=== PATIENT | female | born 1955 | race Caucasian/White ===

== ENCOUNTER → 2020-03-02 12:51 | Outpatient (BNVA) | payer MEDICARE, MEDICAID, SELFPAY | PROVIDERS: PCP Internal Medicine; Referring Provider Internal Medicine; Visit Provider Nurse Practitioner | DX: Z13.89 Encounter for screening for other disorder (principal) | CPT/HCPCS: Q3014 ==

== ENCOUNTER → 2020-09-29 16:03 | Outpatient (BNVA) | payer MEDICARE, MEDICAID, SELFPAY | PROVIDERS: PCP Internal Medicine; Visit Provider Student in an Organized Health Care Education/Training Program | DX: E11.618 Type 2 diabetes mellitus with other diabetic arthropathy (principal); E11.65 Type 2 diabetes mellitus with hyperglycemia | CPT/HCPCS: 99212 ==

== ENCOUNTER → 2020-10-15 15:39 | Outpatient (BNVA) | payer MEDICARE, MEDICAID, SELFPAY | PROVIDERS: PCP Internal Medicine; Visit Provider Nurse Practitioner ==

== ENCOUNTER → 2020-10-27 15:59 | Outpatient (BNVA) | payer MEDICARE, MEDICAID, SELFPAY | PROVIDERS: Visit Provider Nurse Practitioner | CPT/HCPCS: Q3014 ==

== ENCOUNTER 2020-12-08 09:10 | Outpatient (REF) | payer MEDICARE, MEDICAID, SELFPAY ==
--- NOTE | ~2020-12-08 | XR_ITS ---
EXAMINATION: XR KNEE, LEFT CLINICAL INFORMATION: Sprain COMPARISON: Previous x-ray July 2018 TECHNIQUE: Four views of the left knee. FINDINGS: There is an acute comminuted displaced fracture of the patella. No other fracture is seen. Joint spaces are normal. There is a joint effusion. There is prepatellar soft tissue swelling. XR/XR knee LT 4V IMPRESSION: Comminuted displaced fracture of the patella.
== END 2020-12-08 09:11 | disposition home or self-care (01) ==
LOC: HO.HMGCX 09:10
PROVIDERS: Visit Provider Internal Medicine
DX: Z01.818 Encounter for other preprocedural examination (principal); S82.002A Unspecified fracture of left patella, initial encounter for closed fracture
CPT/HCPCS: 73564; 99202

== ENCOUNTER 2020-12-09 14:07 | Day surgery (SDC) | payer MEDICARE, MEDICAID, SELFPAY ==
[2020-12-09] VITALS (13 sets, daily range): BP systolic 141–171; BP diastolic 69–86; PULSE 76–100; RESP 14–20; TEMP 36.1–36.6; O2SAT 9–99; BMI 26.9
--- NOTE | ~2020-12-09 | FL_ITS ---
EXAMINATION: XR FLUOROSCOPY WITH IMAGES CLINICAL INFORMATION: Fracture left patella COMPARISON: Left knee 12/08/2020 TECHNIQUE: Fluoroscopy performed by Dr. Wil Cesar Fluoroscopy time: 0.6 minutes DAP: 0.0415 mGycm2 Images: 2 FINDINGS: On the 2 images obtained there is stabilized patellar fracture with metallic pin in satisfactory alignment. FL/FL guidance in OR IMPRESSION: Status post ORIF with a patellar fracture alignment stabilized with metallic pins.
--- NOTE | 2020-12-09 14:47 | P.CONAN_ITS ---
[facility] Active Problems Active Problems: All Active Problems (Updated 12/08/20 @ 12:53 by Francia diaz PA-C) Fracture of patella, left, closed (Acute) Knee sprain (Acute) Colon cancer screening (Acute) Diabetes type 2, uncontrolled (Acute) Diabetic cheirarthropathy (Acute) GERD (gastroesophageal reflux disease) (Acute) Past Medical History Medical History Depression Diabetes HTN (hypertension) Hyperlipidemia Family History Family History Father Diabetes Alzheimer disease Mother Kidney problem Family history of problems with anesthesia: No Surgical History Surgical History History of carpal tunnel release (~05/2019) Hx of colonoscopy (~2019) Hx of tubal ligation History of Problems with Anesthesia: No Social History Social History Alcohol intake: never Patient Tobacco Use Status: Never used Tobacco Advance Directives: No Advance Directives Information Provided: Yes Meds Allergies Allergy/AdvReac Type Severity Reaction Status Date / Time No Known Allergies Allergy Verified 12/09/20 14:47 Active Medications: Current Medications Cefazolin Sodium/Dextrose (Ancef) 2 gm in 50 mls @ 100 mls/hr IV PREOP ONE Stop: 12/09/20 14:51 Home Medications Medication Instructions Recorded Confirmed Last Taken Type acetaminophen 650 mg 650 mg PO Q12H 09/29/20 Unknown History tablet,extended release (Tylenol 8 Hour) atorvastatin 40 mg tablet 40 mg PO DAILY 09/29/20 Unknown History enalapril maleate 10 mg tablet 10 mg PO DAILY 09/29/20 Unknown History insulin aspart U-100 100 unit/mL 16 unit SUBCUT TID ml 09/29/20 Unknown History subcutaneous solution (Novolog U-100 Insulin aspart) insulin glargine 100 unit/mL (3 56 unit SUBCUT DAILY ml 09/29/20 Unknown History mL) subcutaneous pen (Lantus Solostar U-100 Insulin) meloxicam 15 mg tablet 15 mg PO DAILY 09/29/20 Unknown History metformin 1,000 mg tablet 1,000 mg PO DAILY 09/29/20 Unknown History quetiapine 300 mg tablet 300 mg PO DAILY 09/29/20 Unknown History dulaglutide 0.75 mg/0.5 mL 0.75 mg SUBCUT QWEEK 10/27/20 Unknown History subcutaneous pen injector (Trulicity) escitalopram oxalate 20 mg tablet 20 mg PO BEDTIME 10/27/20 Unknown History insulin aspart U-100 100 unit/mL unit SUBCUT 10/27/20 Unknown History (3 mL) subcutaneous pen (Novolog Flexpen U-100 Insulin aspart) quetiapine 400 mg tablet 400 mg PO BEDTIME 10/27/20 Unknown History Exam Exam Date and Time: December 09, 2020 1447 Airway Mallampati Class: III TM Dist: >3cm Neck ROM: Full Partial: Upper Heart: rrr Lungs: cta Assessment and Plan Assessment Anesthesia Assessment: Anesthesia Plan Discussed and Chart Reviewed Final Anesthetic Review Family History of Problems with Anesthesia: No History of Problems with Anesthesia: No NPO: Yes ASA Class: III Final Preanesthetic Review: No Changes in Pt Med Stat, Meds/Allgs Chart Reviewed and Consent Obtained/Reviewed Patient Risk: Intermediate Procedure Risk: Intermediate Anesthetic Plan Anesthetic Plan: GA Disposition: Standard PACU
--- NOTE | 2020-12-09 14:49 | MHC.SHP ---
Pre-Procedural Eval Section A Date of Service: 12/09/20 The patient is an INPATIENT: No Changes since office visit: Yes Patient answered all questions; No Cold of Flu in the past 2 weeks, No New Medical Problems and No Changes in Medication The History & Physical has been completed within 30 days and I have reviewed it.: Yes Section B Chief Complaint: left patella fx Allergies: Allergies Allergy/AdvReac Type Severity Reaction Status Date / Time No Known Allergies Allergy Verified 12/09/20 14:47 Plan I have reviewed the history and physical and performed a pertinent physical examination on my patient. No changes have occurred unless specified.
[2020-12-09 14:56] LABS: Glucose, Whole Blood 199 mg/dL (60-115)
[2020-12-09] MEDS: Lactated Ringers 1,000 ML 50 ML IVCONT ×2 (14:59→19:14)
--- NOTE | 2020-12-09 16:47 | P.BOP_ITS ---
Brief Operative Note Date of Service: 12/09/20 Pre-op diagnosis: left patella fracture Post-op diagnosis: same Procedure: ORIF left patella Implants: 1.6 mm k wire x 3 and tension band Surgeon: Arsenio De La Torre MD Anesthesia: GETA and local Was an Windows Systems Architect used for this Procedure?: Yes Windows Systems Architect: Francia Sheridan Estimated blood loss (mL): 25 Tourniquet time (min): 75 IV fluids (mL): 1,000 Pathology: other Condition: stable Disposition: PACU
--- NOTE | 2020-12-09 16:50 | P.OP_ITS ---
Operative Note Operative Note Date of Service: 12/09/20 Narrative: Pre-op diagnosis: left patella fracture Post-op diagnosis: same Procedure: ORIF left patella Implants: 1.6 mm k wire x 3 and tension band Surgeon: Arsenio De La Torre MD Anesthesia: GETA and local Was an Screen Printing Supervisor used for this Procedure?: Yes Screen Printing Supervisor: Francia Sheridan Estimated blood loss (mL): 25 Tourniquet time (min): 75 IV fluids (mL): 1,000 Pathology: other Condition: stable Disposition: PACU Procedure in detail: Patient was brought to the operating room placed supine on the operative table and prepped and draped in standard sterile fashion. A time-out was called to identify proper site, proper procedure and proper surgeon. IV antibiotics per weight were administered. I began by insufflating the tourniquet to 300 mm Hg. I then made a standard midline incision over the patella. Dissection was taken down to the patellar retinaculum and the comminuted patella fracture was visualized. I irrigated copiously and removed the hematoma and began examining the fracture. This was and 4-5 sizable fragments with some comminution on them superolaterally and medially. I removed loose bone and irrigated the fracture fragments. I then manipulated the fragments into a reduced position using tenaculum and then placed 31.6 mm K-wires from distal to proximal through the patella to maintain this reduction. I then placed a tension band wire posterior to the K-wires and in a draw string type fashion tightening the wire circumferentially around the patella. This allowed for compression of the multiple fracture fragments on the articular surface. Biplanar fluoroscopy was used to confirm position of hardware and fracture reduction. I was satisfied with the alignment of the patella which was near anatomic and considering the comminution I was very satisfied with this. I was also satisfied with the po sition of the hardware. I was able to range the knee from approximately 0-60 degrees without a change in alignment. I then bent the K-wires posteriorly and removed all excess tension band to minimize the chance of prominent hardware. Once this was done I irrigated again copiously and closed with absorbable suture and stephane. Sterile dressings were applied. was placed into a hinged knee brace locked in extension. 30 mL of Marcaine was injected about the incision. She was brought to the recovery room in stable condition there were no known complications.
[2020-12-09 17:40] LABS: Glucose, Whole Blood 287 mg/dL (60-115)
[2020-12-09] MEDS: ondansetron HCL 4 MG/2 ML VIAL IVPUSH (17:49)
[2020-12-09] MEDS: fentaNYL citrate/PF 100 MCG/2 ML VIAL 50 MCG IVPUSH (18:05)
[2020-12-09] MEDS: oxyCODONE HCl Immed Release 5 MG TABLET PO (19:12)
[2020-12-09 20:35] LABS: Glucose, Whole Blood 287 mg/dL (60-115)
--- NOTE | 2020-12-09 21:03 | PHA.MEDREC ---
Pharmacy Consult ? Medication Reconciliation Pharmacy has completed the medication reconciliation. Patient has not started trulicity yet because she does not know how to use the pen Thanks Candace Winslow Pharm. D
[2020-12-09] MEDS: Acetaminophen 325 MG TABLET 650 MG PO (21:12)
[2020-12-09] MEDS: HYDROmorphone HCl 0.5 MG/0.5 ML SYRINGE 0.25 MG IVPUSH (21:12)
[2020-12-09] MEDS: Insulin Lispro 100 UNIT/ML 3 ML VIAL SUBCUT (21:12)
[2020-12-09] MEDS: Sennosides 8.6 MG TABLET 17.2 MG PO (21:12)
[2020-12-09] MEDS: cefoTEtan disodium 2 GM in 0.9 % Sodium Chloride 50 ML IV (21:46)
[2020-12-10] VITALS (9 sets, daily range): BP systolic 142–159; BP diastolic 73–78; PULSE 93–113; RESP 16–19; TEMP 36.2–37.2; O2SAT 91–98
[2020-12-10] MEDS: oxyCODONE HCl Immed Release 5 MG TABLET 10 MG PO ×6 (00:26→23:45)
[2020-12-10] MEDS: HYDROmorphone HCl 0.5 MG/0.5 ML SYRINGE 0.25 MG IVPUSH ×5 (03:02→20:09)
[2020-12-10] MEDS: Acetaminophen 325 MG TABLET 650 MG PO ×2 (04:38→20:09)
[2020-12-10 07:38] LABS: Glucose, Whole Blood 251 mg/dL (60-115)
[2020-12-10] MEDS: Insulin Lispro 100 UNIT/ML 3 ML VIAL SUBCUT ×4 (07:52→20:49)
[2020-12-10 08:19] LABS: Basophils Absolute Auto 0.1 X10*3/uL (0.0-0.2); Basophils Percent Auto 0.4 % (0-2); Eosinophils Absolute Auto 0.1 X10*3/uL (0.0-0.4); Eosinophils Percent Auto 0.3 % (0-4); Hematocrit 36.9 % (37-47); Hemoglobin 12.1 g/dl (12.0-16.0); Imm Gran Abs Auto 0.09 X10*3/uL (0.00-0.03); Imm Gran Pct Auto 0.5 % (0.0-0.4); Lymphocytes Percent Auto 10.8 % (20-40); MANUAL DIFF FLAG SCAN; Mean Corpuscular HGB Conc 32.8 g/dl (31.0-35.0); Mean Corpuscular Hemoglobin 27.3 pg (27.0-33.0); Mean Corpuscular Volume 83.1 fL (80-98); Mean Platelet Volume 10.7 fL (9.4-12.3); Monocytes Percent Auto 10.5 % (2-11); Neutrophils Absolute Auto 14.4 X10*3/uL (2.0-8.3); Neutrophils Percent Auto 77.5 % (45-73); Platelet Count 553 X10*3/uL (160-400); Red Blood Count 4.44 X10*6/uL (4.20-5.50); Red Cell Distribution Width 14.1 % (11.0-16.0); SCAN SMEAR FLAG 1; White Blood Count 18.6 X10*3/uL (4.8-10.8)
--- NOTE | 2020-12-10 08:22 | P.PNOP_ITS ---
Subjective Subjective Date of Service: 12/10/20 Interval history: POD1 s/p left patella ORIF. Patient is having difficulties with pain management. Will adjust meds as appropriate. No additional complaints. Physical Exam Vital Signs: Vital Signs: Last Vital Signs Temp 97.3 F 12/10/20 07:24 Pulse 93 12/10/20 07:24 Resp 18 12/10/20 07:24 BP 152/78 H 12/10/20 07:24 Pulse Ox 97 12/10/20 07:24 Body Mass Index 26.9 Const: General: cooperative, healthy appearing and no acute distress Resp: Effort & Inspection: normal respiratory effort and able to speak in complete sentences Cardio: Rate: regular rate Peripheral pulses: Peripheral pulses 2+ throughout GI: Palpation (GI): Soft to palpation Skin: Lesions: no lesions Rashes: no rashes Extrem: Other: Lt knee aquacel is clean, dry, and intact. No erythema or drainage. NVI. Procedures Date of Service Date of Service: 12/10/20 Progress Note: A&P Assessment and plan (1) Fracture of patella, left, closed: Status: Acute Assessment and Plan: Continue pain mgmnt Begin Lovenox for dvt ppx begin PT for left patella ORIF, NWB, no flexion Dispo planning-Pending PT eval, pain mgmnt Fall Risk Details Current Medications: Current Medications Acetaminophen (Acetaminophen 325 Mg Tablet) 650 mg PO Q4H PRN PRN Reason: Pain, Mild (Pain Scale 1-3) Last Admin: 12/10/20 04:38 Dose: 650 mg Documented by: Dextrose (Dextrose 50 % 25 Gm/50 Ml Vial) 25 gm IVPUSH Q15M PRN; Protocol PRN Reason: per Hypoglycemia Standing Ord. Enoxaparin Sodium (Enoxaparin Sodium 40 Mg/0.4 Ml Syringe) 40 mg SUBCUT Q24H [facility] Glucose (Glucose Gel 15 Gm Gel..Gram.) 15 gm PO Q15M PRN; Protocol PRN Reason: per Hypoglycemia Standing Ord. Hydromorphone HCl (Hydromorphone Hcl 0.5 Mg/0.5 Ml Syringe) 0.25 mg IVPUSH Q4H PRN; Protocol PRN Reason: Pain, Severe (Pain Scale 7-10) Last Admin: 12/10/20 07:49 Dose: 0.25 mg Documented by: Lactated Ringer's (Lr) 1,000 mls @ 50 mls/hr IVCONT .Q20H [facility] Last Admin: 12/09/20 19:14 Dose: 50 mls/hr Documented by: Insulin Human Lispro (Insulin Lispro 100 Unit/Ml 3 Ml Vial) 0 unit SUBCUT QIDACHS [facility]; Protocol Last Admin: 12/10/20 07:52 Dose: 6 unit Documented by: Ondansetron HCl (Ondansetron Hcl 4 Mg/2 Ml Vial) 4 mg IVPUSH Q4H PRN PRN Reason: Nausea Last Admin: 12/09/20 17:49 Dose: 4 mg Documented by: Oxycodone HCl (Oxycodone Hcl Immed Release 5 Mg Tablet) 10 mg PO Q4H PRN PRN Reason: Pain, Moderate (Pain Scale 4-6 Last Admin: 12/10/20 04:38 Dose: 10 mg Documented by: Oxycodone HCl (Oxycodone Hcl Er 10 Mg Tab.Er.12h) 10 mg PO BID [facility] Pharmacy Consult (Consult Rx Perform Med Rec) 1 each MISCELLANE ONCE PRN PRN Reason: Consult order Senna (Sennosides 8.6 Mg Tablet) 17.2 mg PO BEDTIME [facility] Last Admin: 12/09/20 21:12 Dose: 17.2 mg Documented by: Time Spent With Patient Time: Total time spent is greater than 50% in coordination of care (as documented) at patient's floor/unit and/or counseling patient: Time with patient: less than 15 minutes Quality Stroke Does the patient have a stroke diagnosis?: No VTE Prior VTE?: No VTE Risk Level:: Surgical - high VTE Device Contraindication: N/A - Device Ordered VTE Drug Contraindication: N/A - Med Ordered
[2020-12-10 08:23] LABS: Anion Gap 15 (12-20); Blood Urea Nitrogen 11 mg/dL (9-16); Calcium 9.8 mg/dL (8.4-10.2); Carbon Dioxide 26 mmol/L (22-29); Chloride 98 mmol/L (96-108); Creatinine Clr Calc Pharmacy 56.5; Estimated Glomerular Filt Rate > 60; Glucose Random 280 mg/dL (60-115); Potassium 4.3 mmol/L (3.3-5.1); Sodium 135 mmol/L (135-145)
[2020-12-10 08:46] LABS: SLIDE REVIEW VERIFIED
[2020-12-10] MEDS: oxyCODONE HCl ER 10 MG TAB.ER.12H PO ×2 (09:01→20:09)
--- NOTE | 2020-12-10 11:17 | P.CONHOSP_ITS ---
History of Present Illness Data of Consult Service Date: 12/10/20 Primary Care Provider: Unknown Physician HPI Reason for consult: Diabetes and HTN management 65 year old female with Depression on Buspar, Diabetes managed with insulin and metformin, HTN controlled with Enalapril, and HLD on Lipitor. She was admitted to ortho service and underwent Left Patelar ORIF on 12/09. She sustained patelar injury from a fall on 12/07 during which she hit cement floor. She's complaining of alot of pain..spoke to her with foreign language interpreter Review of Systems Review of Systems: Gen: no fever Resp: no sob, no cough CV: no chest, no PIERRE, no leg edema MSK/SK GI: No n/v, no abd pain Neuro: No confusion Yes all other systems are reviewed and are negative [facility] Medical History (Updated 12/10/20 @ 11:24 by Terrance Juares MD) Depression Diabetes HTN (hypertension) Hyperlipidemia Family History Father Diabetes Alzheimer disease Mother Kidney problem Pertinent family history: . Surgical History History of carpal tunnel release (~05/2019) Hx of colonoscopy (~2019) Hx of tubal ligation Social History Alcohol intake: never Patient Tobacco Use Status: Never used Tobacco Use of substances other than those prescribed or required for medical reasons: No Currently Displaying Signs/Symptoms of Drug Intoxication Withdrawal: No Are you DNR?: No Advance Directives: No Advance Directives Information Provided: Yes Do you have thoughts of harming others: None Do you have a plan to hurt others: No Plan Meds Allergies Allergy/AdvReac Type Severity Reaction Status Date / Time No Known Allergies Allergy Verified 12/09/20 14:47 Active Medications: Current Medications Acetaminophen (Acetaminophen 325 Mg Tablet) 650 mg PO Q4H PRN PRN Reason: Pain, Mild (Pain Scale 1-3) Last Admin: 12/10/20 04:38 Dose: 650 mg Documented by: Dextrose (Dextrose 50 % 25 Gm/50 Ml Vial) 25 gm IVPUSH Q15M PRN; Protocol PRN Reason: per Hypoglycemia Standing Ord. Enoxaparin Sodium (Enoxaparin Sodium 40 Mg/0.4 Ml Syringe) 40 mg SUBCUT Q24H [facility] Glucose (Glucose Gel 15 Gm Gel..Gram.) 15 gm PO Q15M PRN; Protocol PRN Reason: per Hypoglycemia Standing Ord. Hydromorphone HCl (Hydromorphone Hcl 0.5 Mg/0.5 Ml Syringe) 0.25 mg IVPUSH Q4H PRN; Protocol PRN Reason: Pain, Severe (Pain Scale 7-10) Last Admin: 12/10/20 07:49 Dose: 0.25 mg Documented by: Lactated Ringer's (Lr) 1,000 mls @ 50 mls/hr IVCONT .Q20H [facility] Last Admin: 12/09/20 19:14 Dose: 50 mls/hr Documented by: Insulin Human Lispro (Insulin Lispro 100 Unit/Ml 3 Ml Vial) 0 unit SUBCUT QIDACHS [facility]; Protocol Last Admin: 12/10/20 07:52 Dose: 6 unit Documented by: Ondansetron HCl (Ondansetron Hcl 4 Mg/2 Ml Vial) 4 mg IVPUSH Q4H PRN PRN Reason: Nausea Last Admin: 12/09/20 17:49 Dose: 4 mg Documented by: Oxycodone HCl (Oxycodone Hcl Immed Release 5 Mg Tablet) 10 mg PO Q4H PRN PRN Reason: Pain, Moderate (Pain Scale 4-6 Last Admin: 12/10/20 09:01 Dose: 10 mg Documented by: Oxycodone HCl (Oxycodone Hcl Er 10 Mg Tab.Er.12h) 10 mg PO BID [facility] Last Admin: 12/10/20 09:01 Dose: 10 mg Documented by: Pharmacy Consult (Consult Rx Perform Med Rec) 1 each MISCELLANE ONCE PRN PRN Reason: Consult order Senna (Sennosides 8.6 Mg Tablet) 17.2 mg PO BEDTIME [facility] Last Admin: 12/09/20 21:12 Dose: 17.2 mg Documented by: Home Medications Medication Instructions Recorded Confirmed Last Taken Type acetaminophen 650 mg 650 mg PO Q12H 09/29/20 12/09/20 Unknown History tablet,extended release (Tylenol 8 Hour) atorvastatin 40 mg tablet 40 mg PO DAILY 09/29/20 12/09/20 Unknown History enalapril maleate 10 mg tablet 10 mg PO DAILY 09/29/20 12/09/20 Unknown History insulin aspart U-100 100 unit/mL 16 unit SUBCUT TID ml 09/29/20 12/09/20 Unknown History subcutaneous solution (Novolog U-100 Insulin aspart) insulin glargine 100 unit/mL (3 56 unit SUBCUT DAILY ml 09/29/20 12/09/20 Unknown History mL) subcutaneous pen (Lantus Solostar U-100 Insulin) dulaglutide 0.75 mg/0.5 mL 0.75 mg SUBCUT QWEEK 10/27/20 Unknown History subcutaneous pen injector (Trulicity) escitalopram oxalate 20 mg tablet 20 mg PO BEDTIME 10/27/20 12/09/20 Unknown History quetiapine 400 mg tablet 400 mg PO BEDTIME 10/27/20 12/09/20 Unknown History buspirone 10 mg tablet 1 tab PO BID 12/09/20 12/09/20 Unknown History metformin 1,000 mg tablet 1 tab PO BID 12/09/20 12/09/20 Unknown History Physical Exam Vital Signs and Narrative: Vital Signs: Last Vital Signs Temp 97.3 F 12/10/20 07:24 Pulse 93 12/10/20 09:56 Resp 18 12/10/20 07:24 BP 152/78 H 12/10/20 09:56 Pulse Ox 97 12/10/20 09:56 Body Mass Index 26.9 Constitutional Awake and Alert, No apparent distress Neck Supple, No lymphadenopathy Cardiovascular RRR, No M/R/G, S1 S2, No S3 S4, No pedal edema Respiratory Lungs clear, No respiratory distress Gastrointestinal Non tender, Non-distended Skin No rash Neurological Alert & oriented x3 Psychological Appropriate affect Results Labs CBC and Chem 7: 12/10/20 07:51 12/10/20 07:51 Assessment and Plan (1) Hyperlipidemia: Status: Acute (2) HTN (hypertension): Status: Acute (3) Diabetes: Status: Acute (4) Depression: Status: Acute 65/F with DM, HTN, HLD, depression here w/ left patelar fracture s/p ORIF on 12/09 1/HTN--BP high, there could be pain component, -retart Enalapril 2/Diabetes--continue Lantus, hold pre meal asprart of 16 tid, add SSI, continue Metformin 3/HLD--continue Lipitor 4/Depression--continue Seroqul, Buspar and Celexa 5/s/p ORIF of left patelar--mamagement per Ortho, including pain management 6/Leukocytosis--likely reactive, recheck tomorrow 7/GERD--Omeprazole 8/Lovenox for DVT prophylaxis.
[2020-12-10 12:44] LABS: Glucose, Whole Blood 293 mg/dL (60-115)
--- NOTE | 2020-12-10 13:02 | MHC.CM.PN ---
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
--- NOTE | 2020-12-10 15:08 | HO.POSTANES ---
Post Anesthesia Evaluation Post Anesthesia Evaluation Vital Signs: Vital Signs Temp Pulse Resp BP Pulse Ox 12/10/20 14:21 18 12/10/20 11:28 97.1 F 98 16 148/73 H 96 12/10/20 09:56 93 152/78 H 97 12/10/20 07:24 97.3 F 93 18 152/78 H 97 12/10/20 04:00 97.8 F 100 19 148/78 H 97 Anesthesia: General Mental Status: Awake Pain Control: Satisfactory Nausea/Vomiting: None Hydration: Adequate Anesthesia-Related Issues: No Anes. Related Issues
[2020-12-10 15:57] LABS: Glucose, Whole Blood 292 mg/dL (60-115)
[2020-12-10] MEDS: Enoxaparin Sodium 40 MG/0.4 ML SYRINGE SUBCUT (16:53)
[2020-12-10] MEDS: Sennosides 8.6 MG TABLET 17.2 MG PO (20:09)
[2020-12-10 20:25] LABS: Glucose, Whole Blood 264 mg/dL (60-115)
[2020-12-11] VITALS: BP 146/81; PULSE 105; RESP 16; TEMP 35.9; O2SAT 98
[2020-12-11 03:19] VITALS: BP 143/79; PULSE 101; RESP 14; TEMP 36.2; O2SAT 97
[2020-12-11] MEDS: HYDROmorphone HCl 0.5 MG/0.5 ML SYRINGE 0.25 MG IVPUSH (06:13)
[2020-12-11 06:17] VITALS: BP 150/82; PULSE 105
[2020-12-11] MEDS: Acetaminophen 325 MG TABLET 650 MG PO ×2 (06:20→11:18)
[2020-12-11 06:28] LABS: Hematocrit 37.7 % (37-47); Hemoglobin 12.1 g/dl (12.0-16.0); Mean Corpuscular HGB Conc 32.1 g/dl (31.0-35.0); Mean Corpuscular Hemoglobin 27.1 pg (27.0-33.0); Mean Corpuscular Volume 84.3 fL (80-98); Mean Platelet Volume 11.2 fL (9.4-12.3); Platelet Count 513 X10*3/uL (160-400); Red Blood Count 4.47 X10*6/uL (4.20-5.50); Red Cell Distribution Width 14.2 % (11.0-16.0); White Blood Count 15.8 X10*3/uL (4.8-10.8)
[2020-12-11 07:36] LABS: Glucose, Whole Blood 298 mg/dL (60-115)
[2020-12-11] MEDS: oxyCODONE HCl Immed Release 5 MG TABLET 10 MG PO ×2 (07:54→11:56)
[2020-12-11] MEDS: oxyCODONE HCl ER 10 MG TAB.ER.12H PO (07:54)
[2020-12-11] MEDS: Insulin Lispro 100 UNIT/ML 3 ML VIAL SUBCUT ×2 (07:54→11:56)
[2020-12-11 08:00] VITALS: BP 122/61; PULSE 75; RESP 18; TEMP 36.4; O2SAT 96
--- NOTE | 2020-12-11 08:10 | P.DS_ITS ---
DS: Providers Provider Date of Service: 12/11/20 Primary care physician: Unknown Physician Consults: 12/09/20 16:54 Consult to Hospitalist Routine Consulting Provider: Hospitalist Reason For Exam: diabetes DS: Diagnosis Discharge Diagnosis (1) Hyperlipidemia: Status: Acute (2) HTN (hypertension): Status: Acute (3) Diabetes: Status: Acute (4) Depression: Status: Acute DS: Summary Hospital Course Hospital Course: The patient underwent a successful Left patella ORIF, they were transferred to PACU and then to the floor to recover. During their stay, their vitals were stable, afebrile at 97.2. Labs were unremarkable, H/H 12.1-37.7. POD 1 they were started on Lovenox for DVT ppx, they also received Physical Therapy services twice a day. Prior to discharge, their dressing was intact, incision clean dry and intact, patient was in the brace locked in extension and the plan was to be discharged home with VNA services. Time Spent with Patient Time attestation: Total time spent providing and/or coordinating discharge services: Discharge coordination time: Less than 30 minutes Quality: Stroke Does the patient have a stroke diagnosis?: No Physical Exam Vital Signs: Vital Signs: Last Vital Signs Temp 97.2 F 12/11/20 03:19 Pulse 105 H 12/11/20 06:17 Resp 14 12/11/20 03:19 BP 150/82 H 12/11/20 06:17 Pulse Ox 97 12/11/20 03:19 Body Mass Index 26.9 Const: General: cooperative, healthy appearing and no acute distress Resp: Effort & Inspection: normal respiratory effort and able to speak in complete sentences Cardio: Rate: regular rate Peripheral pulses: Peripheral pulses 2+ throughout GI: Palpation (GI): Soft to palpation Skin: Lesions: no lesions Rashes: no rashes Extrem: Other: Lt knee dressing is clean, dry, and intact. No erythema or drainage. in the brace locked in extension. NVI. DS: Data Data Completed and Pending Labs on day of discharge: Laboratory Results - last 24 hr 12/10/20 12/10/20 12/10/20 07:51 07:51 11:30 WBC 18.6 H RBC 4.44 Hgb 12.1 Hct 36.9 L MCV 83.1 MCH 27.3 MCHC 32.8 RDW 14.1 Plt Count 553 H MPV 10.7 Immature Gran % (Auto) 0.5 H Neut % (Auto) 77.5 H Lymph % (Auto) 10.8 L Simpson % (Auto) 10.5 Eos % (Auto) 0.3 Baso % (Auto) 0.4 Lymph # (Auto) 2.0 Simpson # (Auto) 2.0 H Eos # (Auto) 0.1 Baso # (Auto) 0.1 Abs Immat Gran (auto) 0.09 H Absolute Neuts (auto) 14.4 H Absolute Nucleated RBC 0.000 Nucleated RBC % (auto) 0.0 Smear Tech's Comments VERIFIED Sodium 135 Potassium 4.3 Chloride 98 Carbon Dioxide 26 Anion Gap 15 BUN 11 Creatinine 0.90 Estim Creat Clear Calc 56.5 Estimated GFR > 60 POC Glucose 293 H Random Glucose 280 H Calcium 9.8 12/10/20 12/10/20 12/11/20 15:53 20:18 05:15 WBC 15.8 H RBC 4.47 Hgb 12.1 Hct 37.7 MCV 84.3 MCH 27.1 MCHC 32.1 RDW 14.2 Plt Count 513 H MPV 11.2 Immature Gran % (Auto) Neut % (Auto) Lymph % (Auto) Simpson % (Auto) Eos % (Auto) Baso % (Auto) Lymph # (Auto) Simpson # (Auto) Eos # (Auto) Baso # (Auto) Abs Immat Gran (auto) Absolute Neuts (auto) Absolute Nucleated RBC 0.000 Nucleated RBC % (auto) 0.0 Smear Tech's Comments Sodium Potassium Chloride Carbon Dioxide Anion Gap BUN Creatinine Estim Creat Clear Calc Estimated GFR POC Glucose 292 H 264 H Random Glucose Calcium 12/11/20 07:28 WBC RBC Hgb Hct MCV MCH MCHC RDW Plt Count MPV Immature Gran % (Auto) Neut % (Auto) Lymph % (Auto) Simpson % (Auto) Eos % (Auto) Baso % (Auto) Lymph # (Auto) Simpson # (Auto) Eos # (Auto) Baso # (Auto) Abs Immat Gran (auto) Absolute Neuts (auto) Absolute Nucleated RBC Nucleated RBC % (auto) Smear Tech's Comments Sodium Potassium Chloride Carbon Dioxide Anion Gap BUN Creatinine Estim Creat Clear Calc Estimated GFR POC Glucose 298 H Random Glucose Calcium Discharge Plan Discharge Patient Disposition: Home, Self-Care Referrals: Arvin,Francia K, PA-C [Physician Quality Assurance Qa Lab Technician] - 2 Weeks (12/24/20 at 10:45am) Physician,Unknown [Primary Care Provider] - 1 Week Discharge Medications: New enoxaparin 40 mg/0.4 mL Syringe 40 mg subcut Q24H 28 Days Qty: 11.2 RF: 0 sennosides [Senna Lax] 8.6 mg Tablet 17.2 mg PO BEDTIME 30 Days Qty: 60 RF: 0 acetaminophen 325 mg Tablet 650 mg PO Q4H PRN (Reason: Pain, Mild (Pain Scale 1-3)) 30 Days Qty: 240 RF: 0 oxycodone 5 mg Tablet 10 mg PO Q4H PRN (Reason: Pain, Moderate (Pain Scale 4-6) 7 Days Qty: 42 RF: 0 Continued metformin 1,000 mg tablet 1 tab PO BID RF: 0 buspirone 10 mg tablet 1 tab PO BID RF: 0 quetiapine 400 mg tablet 400 mg PO BEDTIME RF: 0 escitalopram oxalate 20 mg tablet 20 mg PO BEDTIME RF: 0 Trulicity 0.75 mg/0.5 mL pen injector 0.75 mg subcut QWEEK RF: 0 pantoprazole [Protonix] 40 mg tablet,delayed release (DR/EC) 40 mg PO DAILY 30 Days Qty: 30 RF: 6 atorvastatin 40 mg tablet 40 mg PO DAILY RF: 0 enalapril maleate 10 mg tablet 10 mg PO DAILY RF: 0 Lantus Solostar U-100 Insulin 100 unit/mL (3 mL) insulin pen 56 unit subcut DAILY RF: 0 insulin aspart U-100 [Novolog U-100 Insulin aspart] 100 unit/mL solution 16 unit subcut TID RF: 0 acetaminophen [Tylenol 8 Hour] 650 mg tablet extended release 650 mg PO Q12H RF: 0 Discharge Orders: Discharge Order (Routine); Ordered 12/11/20 Ordered By: Francia Sheridan Activity Restrictions/Additional Instructions: No left knee bending Use walker/crutches for ambulation Limit stair climbing, No shower, No tub bath, No driving Continue anticoagulant Keep dressing clean, dry and intact. Follow up with orthopedics in 2 weeks
--- NOTE | 2020-12-11 09:20 | W.MHC.F2F ---
Service Date Service Date: 12/11/20 Reasons for Services Reason for physical therapy: home safety and mobility, therapeutic exercises, restore joint function, gait/transfer training, assess need for DME and ADL training Reason for occupational therapy: home safety and mobility, therapeutic exercises, restore joint function, gait/transfer training, assess need for DME and ADL training Homebound: Leaving the home is medically contraindicated at this time without the asist of a device and/or another person due th the listed conditions above and below. Reason homebound: unsteady gait / fall risk, leg weakness, pain with ambulation, pain with transfers, poor balance / fall risk, non-weight bearing and unable to drive Homebound supporting statement: Pt. is considered homebound due to recent surgery. Unable to drive, poor balance, poor gait mechanics. Certification: Based on the above findings, I certify that this patient is confined to the home and needs intermittent care home care, physical therapy and/or speech therapy, or continues to need occupational therapy. The patient is under my care, and I have initiated the establishment of the plan of care. The patient will be followed by a physician who will periodically review the plan of care.
[2020-12-11 10:17] VITALS: BP 122/61; PULSE 75; O2SAT 96
--- NOTE | 2020-12-11 10:18 | MHC.CM.PN ---
PT DISCHARGING HOME W/HVNA FOR SKILLED NNURSING FOR NEW LOVENOX AND HOME PT, CM TO [facility]RANGE ACTION FOR BLS TRANSPORT.
[2020-12-11] MEDS: Enoxaparin Sodium 40 MG/0.4 ML SYRINGE SUBCUT (10:24)
--- NOTE | 2020-12-11 10:42 | P.PNIM_ITS ---
Subjective Subjective Date of Service: 12/11/20 Interval History: Seen in follow-up for medical consultation. Patient complaining knee pain. Medical issues are stable Review of Systems no fever knee pain Physical Exam Vital Signs: Vital Signs: Last Vital Signs Temp 97.5 F 12/11/20 08:00 Pulse 75 12/11/20 10:17 Resp 18 12/11/20 08:00 BP 122/61 12/11/20 10:17 Pulse Ox 96 12/11/20 10:17 Body Mass Index 26.9 General: AO X 3, no acute distress Resp: CTA bilateral CVS: S1,S2,RRR GI: +BS, NT, no distention Skin: No rash, knee dressing d/c/i Neuro: motor grossly intact Psych: appropriate affect Objective Data Active Medications Acetaminophen (Acetaminophen 325 Mg Tablet) 650 mg PO Q4H PRN PRN Reason: Pain, Mild (Pain Scale 1-3) Last Admin: 12/11/20 06:20 Dose: 650 mg Documented by: REJI Dextrose (Dextrose 50 % 25 Gm/50 Ml Vial) 25 gm IVPUSH Q15M PRN; Protocol PRN Reason: per Hypoglycemia Standing Ord. Enoxaparin Sodium (Enoxaparin Sodium 40 Mg/0.4 Ml Syringe) 40 mg SUBCUT Q24H ANAMARIA Last Admin: 12/11/20 10:24 Dose: 40 mg Documented by: DOLLY Glucose (Glucose Gel 15 Gm Gel..Gram.) 15 gm PO Q15M PRN; Protocol PRN Reason: per Hypoglycemia Standing Ord. Hydromorphone HCl (Hydromorphone Hcl 0.5 Mg/0.5 Ml Syringe) 0.25 mg IVPUSH Q4H PRN; Protocol PRN Reason: Pain, Severe (Pain Scale 7-10) Last Admin: 12/11/20 06:13 Dose: 0.25 mg Documented by: REJI Insulin Human Lispro (Insulin Lispro 100 Unit/Ml 3 Ml Vial) 0 unit SUBCUT QIDACHS [facility]; Protocol Last Admin: 12/11/20 07:54 Dose: 6 unit Documented by: DOLLY Ondansetron HCl (Ondansetron Hcl 4 Mg/2 Ml Vial) 4 mg IVPUSH Q4H PRN PRN Reason: Nausea Last Admin: 12/09/20 17:49 Dose: 4 mg Documented by: DAMON Oxycodone HCl (Oxycodone Hcl Immed Release 5 Mg Tablet) 10 mg PO Q4H PRN PRN Reason: Pain, Moderate (Pain Scale 4-6 Last Admin: 12/11/20 07:54 Dose: 10 mg Documented by: DOLLY Oxycodone HCl (Oxycodone Hcl Er 10 Mg Tab.Er.12h) 10 mg PO BID [facility] Last Admin: 12/11/20 07:54 Dose: 10 mg Documented by: DOLLY Pharmacy Consult (Consult Rx Perform Med Rec) 1 each MISCELLANE ONCE PRN PRN Reason: Consult order Senna (Sennosides 8.6 Mg Tablet) 17.2 mg PO BEDTIME [facility] Last Admin: 12/10/20 20:09 Dose: 17.2 mg Documented by: PADMAJA Labs CBC & Chem 7: 12/11/20 05:15 12/10/20 07:51 Labs: Laboratory Results - last 24 hr 12/10/20 12/10/20 12/10/20 11:30 15:53 20:18 MCV MCH MCHC RDW Plt Count MPV Absolute Nucleated RBC Nucleated RBC % (auto) POC Glucose 293 H 292 H 264 H 12/11/20 12/11/20 05:15 07:28 MCV 84.3 MCH 27.1 MCHC 32.1 RDW 14.2 Plt Count 513 H MPV 11.2 Absolute Nucleated RBC 0.000 Nucleated RBC % (auto) 0.0 POC Glucose 298 H Assessment and Plan (1) Hyperlipidemia: Status: Acute (2) HTN (hypertension): Status: Acute (3) Depression: Status: Acute (4) Diabetes: Status: Acute Assessment and Plan: 65/F with DM, HTN, HLD,? depression here w/ left patelar fracture s/p ORIF on 12/09 1/HTN--BP high, resume home meds 2/Diabetes--restart home meds 3/HLD--continue Lipitor 4/Depression--continue Seroqul, Buspar and Celexa 5/s/p ORIF of left patelar--mamagement per Ortho, including pain management 6/Leukocytosis--likely reactive, coming in down 7/GERD--Omeprazole 8/Lovenox for DVT prophylaxis. Medical issues are stable so signing off Quality Stroke Does the patient have a stroke diagnosis?: No VTE Prior VTE?: No VTE Risk Level:: Surgical - high VTE Device Contraindication: N/A - Device Ordered VTE Drug Contraindication: N/A - Med Ordered
[2020-12-11 11:17] LABS: Glucose, Whole Blood 395 mg/dL (60-115)
== END 2020-12-11 13:18 | disposition home or self-care (01) ==
LOC: HO.SSS 14:08 → HO.S3 18:31
PROVIDERS: Internal Medicine; Physician Assistant; PCP Internal Medicine; Visit Provider Orthopaedic Surgery
PROC: (CPT 27524; principal; 2020-12-09 16:00)
DX: S82.002A Unspecified fracture of left patella, initial encounter for closed fracture (principal); D72.829 Elevated white blood cell count, unspecified; I10 Essential (primary) hypertension; E11.9 Type 2 diabetes mellitus without complications; E78.5 Hyperlipidemia, unspecified; K21.9 Gastro-esophageal reflux disease without esophagitis; F32.9 Major depressive disorder, single episode, unspecified; W01.0XXA Fall on same level from slipping, tripping and stumbling without subsequent striking against object, initial encounter; Y93.9 Activity, unspecified; Y92.89 Other specified places as the place of occurrence of the external cause; Y99.9 Unspecified external cause status; Z79.4 Long term (current) use of insulin; Z79.899 Other long term (current) drug therapy
CPT/HCPCS: 27524; 36415; 80048; 82947; 85025; 85027; 97110; 97116; 97162; J0690; J1170; J1650; J2250; J2405; J2550; J3010

== ENCOUNTER 2020-12-24 07:30 | Outpatient (REF) | payer MEDICARE, MEDICAID, SELFPAY ==
--- NOTE | ~2020-12-24 | XR_ITS ---
EXAMINATION: XR KNEE, LEFT CLINICAL INFORMATION: Left knee pain. COMPARISON: Left knee 12/09/2020 TECHNIQUE: Two views of the left knee. FINDINGS: There are cerclage wires surrounding the fractured patella stabilizing the fracture fragments in alignment. There are surgical skin stephane along the anterior from intervention. Minimal joint fluid is seen in the suprapatellar bursa. XR/XR knee LT 2V IMPRESSION: Status post ORIF of patellar fracture with fracture fragments in alignment. Immediate postoperative changes are noted. No major change from 12/09/2020 exam.
== END 2020-12-24 07:31 | disposition home or self-care (01) ==
LOC: HO.HOSX 07:30
PROVIDERS: Visit Provider Physician Assistant
DX: S82.002D Unspecified fracture of left patella, subsequent encounter for closed fracture with routine healing (principal)
CPT/HCPCS: 73560; 99212

== ENCOUNTER 2021-03-05 07:07 | Outpatient (REF) | payer MEDICARE, MEDICAID, SELFPAY ==
--- NOTE | ~2021-03-05 | XR_ITS ---
EXAMINATION: XR KNEE, LEFT CLINICAL INFORMATION: Pain in the knee. COMPARISON: Multiple prior examinations including most recent x-ray December 2020. TECHNIQUE: 2 views of the left knee. FINDINGS: Postop changes are redemonstrated related to orthopedic fixation with cerclage wires in place stabilizing and crossing the previously noted patellar fracture. Alignment is unchanged. The borders of the fracture are slightly less conspicuous suggesting at least partial healing of the fracture. There is a mild joint effusion. The surgical stephane have been removed. The medial and lateral compartments are normal. Arterial calcification noted. XR/XR knee LT 2V IMPRESSION: Stable postoperative changes with unchanged alignment. Possible mild partial healing of the patella fracture.
== END 2021-03-05 07:08 | disposition home or self-care (01) ==
LOC: HO.HOSX 07:07
PROVIDERS: Visit Provider Physician Assistant
DX: S82.002D Unspecified fracture of left patella, subsequent encounter for closed fracture with routine healing (principal)
CPT/HCPCS: 73560; 99212

== ENCOUNTER 2021-05-06 14:50 | Outpatient (REF) | payer MEDICARE, MEDICAID, SELFPAY ==
--- NOTE | ~2021-05-06 | XR_ITS ---
EXAMINATION: AP BILATERAL KNEE AND RIGHT KNEE 2 VIEWS. CLINICAL INFORMATION: Pain. COMPARISON: Left knee 03/05/2021 TECHNIQUE: AP bilateral knee standing. Left knee 2 views. FINDINGS: AP bilateral knee: There is mild reduction in bilateral medial compartment joint space. There are cerclage wires surrounding the patella stabilizing fracture. No soft tissue abnormality seen. Left knee: There a cerclage wires surrounding the entire patella and stabilizing old healed patellar fracture. There is mild suprapatellar joint effusion. There is mild prepatellar soft tissue swelling. No recurrent fracture dislocation seen. XR/XR knee standing BI IMPRESSION: Postoperative changes of the left patella stabilizing old healed fracture. There is mild left knee joint effusion with prepatellar soft tissue swelling.
--- NOTE | ~2021-05-06 | XR_ITS ---
EXAMINATION: AP BILATERAL KNEE AND RIGHT KNEE 2 VIEWS. CLINICAL INFORMATION: Pain. COMPARISON: Left knee 03/05/2021 TECHNIQUE: AP bilateral knee standing. Left knee 2 views. FINDINGS: AP bilateral knee: There is mild reduction in bilateral medial compartment joint space. There are cerclage wires surrounding the patella stabilizing fracture. No soft tissue abnormality seen. Left knee: There a cerclage wires surrounding the entire patella and stabilizing old healed patellar fracture. There is mild suprapatellar joint effusion. There is mild prepatellar soft tissue swelling. No recurrent fracture dislocation seen. XR/XR knee LT 2V IMPRESSION: Postoperative changes of the left patella stabilizing old healed fracture. There is mild left knee joint effusion with prepatellar soft tissue swelling.
== END 2021-05-06 14:51 | disposition home or self-care (01) ==
LOC: HO.HOSX 14:50
PROVIDERS: Visit Provider Physician Assistant
DX: S82.002A Unspecified fracture of left patella, initial encounter for closed fracture (principal)
CPT/HCPCS: 73560; 73565; 99212

== ENCOUNTER 2021-06-28 13:54 | Outpatient (REF) | payer MEDICARE, MEDICAID, SELFPAY ==
--- NOTE | ~2021-06-28 | XR_ITS ---
EXAMINATION: XR KNEE, LEFT CLINICAL INFORMATION: Left knee pain. COMPARISON: Most recent left knee radiographs dated 05/06/2021. TECHNIQUE: AP, lateral, and sunrise views of the left knee. FINDINGS: Orthopedic wires redemonstrated within the patella, unchanged. No hardware fracture. No perihardware lucency to suggest loosening or infection. Mid patellar fracture in anatomic alignment, unchanged when compared to the prior examination. No acute fracture or dislocation. Tiny patellofemoral marginal osteophytes. No osseous erosion. Atherosclerotic calcifications. Trace joint effusion. XR/XR knee LT 3V IMPRESSION: Patellar fracture in anatomic alignment with orthopedic wires. No evidence of hardware complication. Mild patellofemoral arthrosis, unchanged. Trace joint effusion, decreased.
== END 2021-06-28 13:55 | disposition home or self-care (01) ==
LOC: HO.HOSX 13:54
PROVIDERS: Visit Provider Physician Assistant
DX: S82.002A Unspecified fracture of left patella, initial encounter for closed fracture (principal)
CPT/HCPCS: 73562; 99212

== ENCOUNTER → 2021-07-29 15:02 | Outpatient (BNVA) | payer MEDICARE, MEDICAID, SELFPAY | PROVIDERS: Visit Provider Physician Assistant | DX: S82.002D Unspecified fracture of left patella, subsequent encounter for closed fracture with routine healing (principal) | CPT/HCPCS: 99212 ==

== ENCOUNTER → 2021-09-09 15:07 | Outpatient (BNVA) | payer MEDICARE, MEDICAID, SELFPAY | PROVIDERS: Visit Provider Physician Assistant | DX: S82.002D Unspecified fracture of left patella, subsequent encounter for closed fracture with routine healing (principal) | CPT/HCPCS: 99212 ==

== ENCOUNTER 2021-09-17 13:00 | Outpatient (RCR) | payer MEDICARE, MEDICAID, SELFPAY ==
--- NOTE | 2021-03-16 19:31 | MHC.PT.EP ---
[facility] [place] Office [place] Office [place] Office [address] Dimple Alonzo [address] [phone] F: [phone] F: [phone] F: [phone] F: [phone] Physical Therapy Plan of Care Date of Evaluation: Date of Surgery: 12/09/2020 Diagnosis: Fx L patella s/p ORIF 12/09/20 Assessment: Since her last appointment she has been weight-bearing as tolerated in her brace locked in extension. She will be referred to physical therapy which an order has been placed today. We would like her to a cheese 0-60 degrees range of motion now and then progress by 10? each week. Her brace has been unlocked to 60? today and as she progresses by 10? each week her brace may be unlocked to reflect this. Frequency and Duration: The patient will be seen 2 x / wk x 8 wks. Short Term Goals: initiate HEP with evidence of compliance. Pt will achieve at leas 120 degrees knee flexion; initial: 35 degrees. Pt will achieve full knee extension: initial: 6 degrees flexion. Unit Manager Rn Goals: I with HEP. ambulates with SPC with symmetrical denise. Improve L knee extension MMT to at least 4+/5; initial: 3+/5. Pt will be able to walk 2 blocks with at most a moderate amount of difficulty; initial: extreme difficulty or unable. Treatment Plan: Modalities to reduce pain, spasms and effusion. Manual therapy to restore motion and function. Therapeutic exercise to improve strength and flexibility. Neuromuscular re-education for posture and balance. Therapeutic activities to return to functional activities of daily living. Electronically signed by: Pawel Purcell PT. Please sign and return to therapist. Thank you for your referral.
--- NOTE | 2021-09-17 15:07 | MHC.PT.DC ---
[facility] [place] Office [place] Office [place] Office [address] Dimple Alonzo 140 [facility] [phone] F: [phone] F: [phone] F: [phone] F: [phone] Physical Therapy Discharge Report Diagnosis: Fx L patella s/p ORIF 12/09/20 Date of Surgery: 12/09/2020 Date of Evaluation: 03/16/21 Date of Discharge: 09/17/21 Treatments to Date: Cancellations to Date: No Shows to Date: Discharge Status: Improved Function Independent with HEP Discharge Summary: Tonya has been an active participant in her therapy in and out of the clinic with fair tolerance for flexion ROM as she persists with end range flexion pain. She has met some of her therapeutic goals, is I with her home program to continue flexion ROM and strengthening, and is in agreement with DC at this time. ROM 0-105 degrees. Electronically signed by: Pawel Purcell PT Please sign and return to therapist. Thank you for your referral.
== END 2021-09-17 15:07 | disposition home or self-care (01) ==
LOC: HO.PTCHIC 13:00
PROVIDERS: Visit Provider Physician Assistant
DX: S82.002D Unspecified fracture of left patella, subsequent encounter for closed fracture with routine healing (principal)
CPT/HCPCS: 97014; 97110; 97112; 97116; 97140; 97150; 97162

== ENCOUNTER 2021-10-21 07:52 | Outpatient (REF) | payer MEDICARE, MEDICAID, SELFPAY ==
--- NOTE | ~2021-10-21 | XR_ITS ---
EXAMINATION: XR KNEE, LEFT XR KNEE AP STANDING CLINICAL INFORMATION: Pain. COMPARISON: Radiographs dated 06/28/2021. TECHNIQUE: Lateral and axial of the left knee were obtained. AP bilateral standing view of the knees was obtained. FINDINGS: Bony alignment and mineralization are normal. The left lateral and medial joint space compartments are well-maintained. The left patellofemoral compartment is well-maintained. There is a healed fracture of the patella, with intact fixator pins and cerclage wire. No hardware failure or loosening is seen. There is no fracture, dislocation or joint effusion. There are diffuse atherosclerotic calcifications. The lateral and medial joint space towards the right knee are well-maintained. No significant varus or valgus configuration is seen bilaterally. XR/XR knee LT 2V IMPRESSION: 1. There has been a prior ORIF of a left patellar fracture. No fracture, dislocation or joint effusion is presently seen. 2. No significant degenerative change is seen of the bilateral knees.
--- NOTE | ~2021-10-21 | XR_ITS ---
EXAMINATION: XR KNEE, LEFT XR KNEE AP STANDING CLINICAL INFORMATION: Pain. COMPARISON: Radiographs dated 06/28/2021. TECHNIQUE: Lateral and axial of the left knee were obtained. AP bilateral standing view of the knees was obtained. FINDINGS: Bony alignment and mineralization are normal. The left lateral and medial joint space compartments are well-maintained. The left patellofemoral compartment is well-maintained. There is a healed fracture of the patella, with intact fixator pins and cerclage wire. No hardware failure or loosening is seen. There is no fracture, dislocation or joint effusion. There are diffuse atherosclerotic calcifications. The lateral and medial joint space towards the right knee are well-maintained. No significant varus or valgus configuration is seen bilaterally. XR/XR knee standing BI IMPRESSION: 1. There has been a prior ORIF of a left patellar fracture. No fracture, dislocation or joint effusion is presently seen. 2. No significant degenerative change is seen of the bilateral knees.
== END 2021-10-21 07:53 | disposition home or self-care (01) ==
LOC: HO.HOSX 07:52
PROVIDERS: Visit Provider Orthopaedic Surgery
DX: S82.002A Unspecified fracture of left patella, initial encounter for closed fracture (principal)
CPT/HCPCS: 73560; 73565; 99212

== ENCOUNTER → 2022-06-09 12:46 | Outpatient (BNVA) | payer MEDICARE, MEDICAID, SELFPAY | PROVIDERS: Visit Provider Physician Assistant | DX: S82.002D Unspecified fracture of left patella, subsequent encounter for closed fracture with routine healing (principal) | CPT/HCPCS: 99212 ==

== ENCOUNTER → 2022-06-30 12:43 | Outpatient (BNVA) | payer MEDICARE, MEDICAID, SELFPAY | PROVIDERS: Visit Provider Orthopaedic Surgery | DX: M25.562 Pain in left knee (principal); T84.023A Instability of internal left knee prosthesis, initial encounter; E11.65 Type 2 diabetes mellitus with hyperglycemia; Z96.652 Presence of left artificial knee joint; Z47.1 Aftercare following joint replacement surgery | CPT/HCPCS: 99212 ==

== ENCOUNTER 2022-07-27 06:56 | Day surgery (SDC) | payer MEDICARE, MEDICAID, SELFPAY ==
[2022-07-22 13:26] VITALS: BMI 26.5
--- NOTE | 2022-07-26 14:49 | P.CONAN_ITS ---
Documented by User: Joanna Gomes NP 07/26/22 14:50 HPI - Anesthesia Eval Consult details Narrative: 67yo F for Removal Orthopedic Hardware from Knee PMFSH Active Problems Active Problems: All Active Problems (Updated 07/22/22 @ 13:17 by Patricia Ramirez RN) GERD (gastroesophageal reflux disease) (Acute) Diabetic cheirarthropathy (Acute) Diabetes type 2, uncontrolled (Acute) Colon cancer screening (Acute) Knee sprain (Acute) Fracture of patella, left, closed (Acute) Retained orthopedic hardware (Acute) Past Medical History Medical History (Updated 07/22/22 @ 13:17 by Patricia Ramirez RN) Depression Diabetes GERD (gastroesophageal reflux disease) HTN (hypertension) Hyperlipidemia Family History Family History Father Diabetes Alzheimer disease Mother Kidney problem Family history of problems with anesthesia: No Surgical History Surgical History (Updated 07/22/22 @ 13:16 by Patricia Ramirez RN) History of carpal tunnel release (~05/2019) History of open reduction and internal fixation (ORIF) procedure Hx of colonoscopy (~2019) Hx of tubal ligation History of Problems with Anesthesia: No Social History Social History Alcohol intake: never Patient Tobacco Use Status: Never used Tobacco Second Hand Smoke Exposure: No service: No Current occupational status: disabled Current occupation: rt handed Meds Allergies Allergy/AdvReac Type Severity Reaction Status Date / Time No Known Allergies Allergy Verified 06/09/22 12:52 Home Medications Medication Instructions Recorded Confirmed Last Taken Type atorvastatin 40 mg tablet 40 mg PO DAILY 09/29/20 07/22/22 Unknown History enalapril maleate 10 mg tablet 10 mg PO DAILY 09/29/20 07/22/22 Unknown History insulin aspart U-100 100 unit/mL 16 unit subcut TID 09/29/20 07/22/22 Unknown History subcutaneous solution (Novolog U-100 Insulin aspart) insulin glargine 100 unit/mL (3 56 unit subcut DAILY 09/29/20 07/22/22 Unknown History mL) subcutaneous pen (Lantus Solostar U-100 Insulin) dulaglutide 0.75 mg/0.5 mL 0.75 mg subcut QWEEK 10/27/20 07/22/22 Unknown History subcutaneous pen injector (Trulicity) escitalopram oxalate 20 mg tablet 20 mg PO BEDTIME 10/27/20 07/22/22 Unknown History quetiapine 400 mg tablet 400 mg PO BEDTIME 10/27/20 07/22/22 Unknown History buspirone 10 mg tablet 1 tab PO BID 12/09/20 07/22/22 Unknown History metformin 1,000 mg tablet 1 tab PO BID 12/09/20 07/22/22 Unknown History lancets (Accu-Chek Softclix #100 ea 09/09/21 Unknown History Lancets) pen needle, diabetic 31 gauge x #1,200 ea 09/09/21 Unknown History 08/02 (Sure Comfort Pen Needle) Exam Exam Date and Time: July 26, 2022 1449 Height,Weight and Vital Signs: Height 5 ft 2 in Weight 65.771 kg Assessment and Plan Assessment Anesthesia Assessment: Chart Reviewed Final Anesthetic Review Family History of Problems with Anesthesia: No History of Problems with Anesthesia: No Documented by User: Jacques Sanchez MD 07/27/22 17:17 HPI - Anesthesia Eval Consult details Narrative: 67yo F for Removal Orthopedic Hardware from Knee left denies any chest pain or SOB. [facility] Past Medical History Medical History (Updated 07/22/22 @ 13:17 by Patricia Ramirez RN) Depression Diabetes GERD (gastroesophageal reflux disease) HTN (hypertension) Hyperlipidemia Functional capacity: uses cane/walker Family History Family History Father Diabetes Alzheimer disease Mother Kidney problem Surgical History Surgical History (Updated 07/22/22 @ 13:16 by Patricia Ramirez RN) History of carpal tunnel release (~05/2019) History of open reduction and internal fixation (ORIF) procedure Hx of colonoscopy (~2019) Hx of tubal ligation Social History Social History Alcohol intake: never Patient Tobacco Use Status: Never used Tobacco Second Hand Smoke Exposure: No service: No Current occupational status: disabled Current occupation: rt handed Meds Allergies Allergy/AdvReac Type Severity Reaction Status Date / Time No Known Allergies Allergy Verified 06/09/22 12:52 Home Medications Medication Instructions Recorded Confirmed Last Taken Type atorvastatin 40 mg tablet 40 mg PO DAILY 09/29/20 07/22/22 Unknown History enalapril maleate 10 mg tablet 10 mg PO DAILY 09/29/20 07/22/22 Unknown History insulin aspart U-100 100 unit/mL 16 unit subcut TID 09/29/20 07/22/22 Unknown History subcutaneous solution (Novolog U-100 Insulin aspart) insulin glargine 100 unit/mL (3 56 unit subcut DAILY 09/29/20 07/22/22 Unknown History mL) subcutaneous pen (Lantus Solostar U-100 Insulin) dulaglutide 0.75 mg/0.5 mL 0.75 mg subcut QWEEK 10/27/20 07/22/22 Unknown Histor y subcutaneous pen injector (Trulicity) escitalopram oxalate 20 mg tablet 20 mg PO BEDTIME 10/27/20 07/22/22 Unknown History quetiapine 400 mg tablet 400 mg PO BEDTIME 10/27/20 07/22/22 Unknown History buspirone 10 mg tablet 1 tab PO BID 12/09/20 07/22/22 Unknown History metformin 1,000 mg tablet 1 tab PO BID 12/09/20 07/22/22 Unknown History lancets (Accu-Chek Softclix #100 ea 09/09/21 Unknown History Lancets) pen needle, diabetic 31 gauge x #1,200 ea 09/09/21 Unknown History 5/16 (Sure Comfort Pen Needle) Exam Airway Mallampati Class: IV TM Dist: >3cm Partial: Upper and Lower Loose/Missing/Broken Teeth: Yes (bridge ) Assessment and Plan Assessment Anesthesia Assessment: Anesthesia Plan Discussed Final Anesthetic Review NPO: Yes ASA Class: III Final Preanesthetic Review: Meds/Allgs Chart Reviewed, Consent Obtained/Reviewed and Anes Risks/Benef Reviewed Patient Risk: Intermediate Procedure Risk: Intermediate Anesthetic Plan Anesthetic Plan: GA, Regional Block and Agree w/ Assess. and Plan Disposition: Standard PACU
[2022-07-27] VITALS (9 sets, daily range): BP systolic 101–135; BP diastolic 63–78; PULSE 65–96; RESP 11–18; TEMP 36.1–37.3; O2SAT 96–100
--- NOTE | ~2022-07-27 | FL_ITS ---
EXAMINATION: XR FLUOROSCOPY WITH IMAGES CLINICAL INFORMATION: Hardware removal. COMPARISON: 12/09/2020 right knee TECHNIQUE: Fluoroscopy Supervised By: Dr. De La Torre. Fluoroscopy Time: 0 minutes. Cumulative Dose: 0.0709 mGy. DAP: 0.04341 Gycm2. Images: 1. FINDINGS: A single digital AP image of the knees reveals removal of hardware surrounding the patella for a healed patellar fracture. FL/FL guidance in OR IMPRESSION: 1. Removal of hardware surrounding the patella for a healed patellar fracture. 2. Fluoroscopy was provided to the referring physician for further details.
--- NOTE | 2022-07-27 07:37 | MHC.SHP ---
Pre-Procedural Eval Section A Date of Service: 07/27/22 The patient is an INPATIENT: No Changes since office visit: No Cold of Flu in the past 2 weeks, No New Medical Problems, No Changes in Medication and No Patient answered all questions The History & Physical has been completed within 30 days and I have reviewed it.: Yes Section B Chief Complaint: Presence of functional implant, unspecified Allergies: Allergies Allergy/AdvReac Type Severity Reaction Status Date / Time No Known Allergies Allergy Verified 06/09/22 12:52 Plan I have reviewed the history and physical and performed a pertinent physical examination on my patient. No changes have occurred unless specified. Time Spent With Patient Time: Total time managing care of this patient today ____ minutes.
[2022-07-27 07:41] LABS: Glucose, Whole Blood 199 mg/dL (60-115)
--- NOTE | 2022-07-27 10:34 | W.PM.OPN ---
Operative Note Operative Note Date of Service: 07/27/22 Narrative: Date of Service: 07/27/22 Pre-op diagnosis: Retained ortho hardware left knee Post-op diagnosis: same Procedure: Removal of hardware left knee Implants: none Surgeon: Arsenio De La Torre MD Anesthesia: GETA and regional Was an Garbage Pick Up Worker used for this Procedure?: Yes Garbage Pick Up Worker: Francia Sheridan Estimated blood loss (mL): 25 Tourniquet time (min): 20 IV fluids (mL): 500 Pathology: none sent Condition: stable Disposition: PACU Patient was brought to the operating room and placed supine on the surgical table. She was prepped and draped in standard sterile fashion and a time out was called to identify proper site, proper procedure and IV antibiotics per weight were administered. The tourniquet was insufflated to 300 mm Hg. I began by incising through the prior midline incision. Tissue was excised over the three straight wire distally and these were removed distally with a needle lumber stacker driver. I then identified the knot superomedially and unwound this and then removed the circumferential wire without difficulty. Final radiographs were obtained to confirm hardware removal. I then let the tourniquet down and closed with 3.0 Vicryl and stephane. Patient was placed in sterile dressing and awakened from anesthesia. She was brought to the recovery room in stable condition. There were no known complications.
[2022-07-27 10:48] LABS: Glucose, Whole Blood 154 mg/dL (60-115)
[2022-07-27] MEDS: Acetaminophen 325 MG TABLET 650 MG PO (11:58)
--- NOTE | 2022-07-27 12:11 | PC.NURSE ---
Patient stated she is allergic to oxycodone. Anesthesia states Dr. De La Torre aware. This RN contacted CLARY Feldman about medication but awaiting response.
== END 2022-07-27 13:09 | disposition home or self-care (01) ==
PROVIDERS: Visit Provider Orthopaedic Surgery
PROC: (CPT 20680; principal; 2022-07-27 09:10)
DX: T84.84XA Pain due to internal orthopedic prosthetic devices, implants and grafts, initial encounter (principal); Z96.9 Presence of functional implant, unspecified; M25.562 Pain in left knee; M23.8X2 Other internal derangements of left knee; I10 Essential (primary) hypertension; E78.5 Hyperlipidemia, unspecified; E11.65 Type 2 diabetes mellitus with hyperglycemia; F32.A Depression, unspecified; Z79.4 Long term (current) use of insulin; Z79.899 Other long term (current) drug therapy; Z88.8 Allergy status to other drugs, medicaments and biological substances
CPT/HCPCS: 20680; 82947; J0690; J1100; J1170; J2405; J2795; J3010

== ENCOUNTER 2022-08-01 12:48 | Outpatient (REF) | payer MEDICARE, MEDICAID, SELFPAY ==
--- NOTE | ~2022-08-01 | XR_ITS ---
EXAMINATION: XR KNEE, LEFT CLINICAL INFORMATION: Pain. COMPARISON: None available. TECHNIQUE: Two views of the left knee. FINDINGS: There are anterior knee stephane from recent surgery. There are no loose bodies, bony erosive changes. There is mild loss of lateral compartment joint space. No acute fracture or loose body seen. The soft tissues are normal. XR/XR knee LT 2V IMPRESSION: Postoperative changes left knee. Mild degenerative changes lateral compartment.
== END 2022-08-01 12:49 | disposition home or self-care (01) ==
LOC: HO.HOSX 12:48
PROVIDERS: Visit Provider Physician Assistant
DX: Z47.1 Aftercare following joint replacement surgery (principal); Z98.890 Other specified postprocedural states
CPT/HCPCS: 73560; 99212

== ENCOUNTER → 2022-08-09 11:15 | Outpatient (BNVA) | payer MEDICARE, MEDICAID, SELFPAY | PROVIDERS: Visit Provider Physician Assistant | DX: Z47.89 Encounter for other orthopedic aftercare (principal); Z98.890 Other specified postprocedural states | CPT/HCPCS: 99212 ==

== ENCOUNTER → 2022-09-08 12:19 | Outpatient (BNVA) | payer MEDICARE, MEDICAID, SELFPAY | PROVIDERS: Visit Provider Orthopaedic Surgery | DX: Z47.89 Encounter for other orthopedic aftercare (principal); Z98.890 Other specified postprocedural states | CPT/HCPCS: 99212 ==

== ENCOUNTER 2023-04-05 11:00 | Outpatient (RCR) | payer MEDICARE, OTHER, MEDICAID, SELFPAY ==
--- NOTE | 2023-02-17 10:47 | MHC.PT.EP ---
[facility] [place] Office [place] Office [place] Office [address] Zara Alonzo [address] [phone] F: [phone] F: [phone] F: [phone] F: [phone] Physical Therapy Plan of Care Date of Evaluation: 02/17/23 Date of Surgery: 07/27/22 Diagnosis: post-op L knee removal of hardware (old patellar fracture) (RL) Assessment: pt is a 67 y/o female presenting to physical therapy w/ referring diagnosis of removal of ortho hardware left knee. pt is status post JILLIAN 07/29/22 for old patellar fx. Overall, she is very sedentary and relies on her children for nearly all daily tasks. She does not appear very motivated at this time and requires significant encouragement to try. Impairments include pain, decreased range of motion, decreased strength, impaired functional mobility, impaired postural awareness, and altered ambulation mechanics. pt is a fair candidate for skilled PT due to age, potential remediation of impairments, typical disease/condition progression and prognosis, comorbidities, and motivation. pt would benefit from skilled PT intervention to provide a tailored strengthening and stretching exercise program, functional training, gait training, postural re-training, neuromuscular re-education, modalities as needed for pain, equipment safety demonstration. Frequency and Duration: The patient will be seen 2x/wk for 6 wks Short Term Goals: pt will be I w/ HEP to promote self-management of condition. pt will improve L quad strength by 1 MMT grade to promote ease in sit<>stand transfers. Mcfp Goals: pt will report a statistically significant improvement in self-reported outcome measure, LEFI, to promote return to PLOF. pt will improve L knee flexion to at least 110* to promote ease in navigating stairs. Treatment Plan: Modalities to reduce pain, spasms and effusion. Manual therapy to restore motion and function. Therapeutic exercise to improve strength and flexibility. Neuromuscular re-education for posture and balance. Therapeutic activities to return to functional activities of daily living. Electronically signed by: Becki Correa PT, DPT Please sign and return to therapist. Thank you for your referral.
--- NOTE | 2023-04-18 11:32 | MHC.PT.DC ---
[facility] [place] Office [place] Office [place] Office [address] Dimple Alonzo 140 [facility] [phone] F: [phone] F: [phone] F: [phone] F: [phone] Physical Therapy Discharge Report Diagnosis: post-op L knee removal of hardware (old patellar fracture) (RL) Date of Surgery: 07/27/22 Date of Evaluation: 02/17/23 Date of Discharge: 04/18/23 Treatments to Date: 6 Cancellations to Date: 7 No Shows to Date: 1 Discharge Status: Improved Function Independent with HEP Patient Elected to Stop Discharge Summary: The patient overall made some improvements in her knee range of motion and strength. Her functional mobility and ability to do things for herself has drastically improved. She is not using any assistive device at the time of her discharge. She does not wish to continue with PT at this time. She is discharged to her HEP. Electronically signed by: Becki Correa PT, DPT Please sign and return to therapist. Thank you for your referral.
== END 2023-04-18 11:33 | disposition home or self-care (01) ==
LOC: HO.PT 11:00
PROVIDERS: PCP Nurse Practitioner Family; Visit Provider Physician Assistant
DX: Z98.890 Other specified postprocedural states (principal)
CPT/HCPCS: 97110; 97162

== ENCOUNTER 2024-11-06 15:09 | Outpatient (AMB) | payer OTHER, SELFPAY ==
[2024-11-06 15:12] VITALS: BP 120/57; PULSE 92; RESP 16; O2SAT 97; BMI 27.8
--- NOTE | 2024-11-06 15:12 | A.OFFVIS_ITS ---
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 The neuropathy has been present for more than a year, with symptoms including burning and tingling sensations primarily on the bottom of both feet. The symptoms are exacerbated during the night, particularly in the afternoon and night, and are not relieved by ice application. The patient has a history of diabetes, which is reportedly under control with a recent A1c of approximately 6%. She has been seeing a predator control trapper for toenail care, and there is no mention of any other significant medical history or hospitalizations. - Onset: More than a year ago - Quality: Burning and tingling - Location: Primarily on the bottom of both feet - Exacerbating factors: Worse at night, particularly in the afternoon and night - Relieving factors: Not relieved by ice application - Affect: Not explicitly discussed - Analgesia: Qutensa patches were previously used but are no longer covered by insurance - Adverse Effects: Not explicitly discussed - Activities of Daily Living: Not explicitly discussed - Aberrant Drug Related Behaviors: Not explicitly discussed [facility] Medical History Depression Diabetes GERD (gastroesophageal reflux disease) HTN (hypertension) Hyperlipidemia Surgical History History of carpal tunnel release (~05/2019) History of open reduction and internal fixation (ORIF) procedure Hx of colonoscopy (~2019) Hx of tubal ligation Family History Father Diabetes Alzheimer disease Mother Kidney problem Social History (System 01/13/23 @ 15:28 by Tracy Saba) Alcohol intake: never Patient Tobacco Use Status: Never used Tobacco Second Hand Smoke Exposure: No service: No Current occupational status: disabled Current occupation: rt handed Review of Systems Const Details: - Neurological: Reports burning and tingling in bilateral feet, worse at night Physical Exam Exam Exam: General: awake, alert, oriented. Answers questions appropriately. Fully engaged in examination. Skin: warm, dry, intact HEENT: Normocephalic. Hearing intact. Cardiac: External chest normal in appearance. Respiratory: No cough, audible wheezing or stridor. Abdomen: without gross distension. MS: No obvious swelling or deformities. Able to transition from sit to stand unassisted. Ambulates with bilaterally normal heel strike and toe off Right foot: skin intact. CMS intact Left foot: skin intact. CMS intact Neurological: Oriented to person, place, time and situation. Thought process intact. No gait abnormalities appreciated. Psychiatric: Appropriate mood and affect. Good judgment and insight. Vital Signs: Last Vital Signs Pulse 92 11/06/24 15:12 Resp 16 11/06/24 15:12 BP 120/57 L 11/06/24 15:12 Pulse Ox 97 11/06/24 15:12 Oxygen Delivery Method Room Air 11/06/24 15:12 BMI result Body Mass Index 27.8 Assessment & Plan Assessment & Plan (1) Diabetic neuropathy: Code(s): E11.40 - Type 2 diabetes mellitus with diabetic neuropathy, unspecified Category: Medical Plan The patient was advised to consider the use of Qutenza patches, which are applied in-office for neuropathic pain management. However, there are issues with insurance coverage for these patches, and alternative arrangements may need to be explored. The patient is encouraged to follow up with her predator control trapper for ongoing foot care and to monitor her diabetes management closely. Qutenza brochure was provided to patient for review at home. Will submit PA for Qutenza topical application. Patient advised on procedure including preparation and EMLA application prior to appointment. She is aware treatment is done in office and she will be here for at least 30minutes during each visit. Patient was informed and verbally consented to the use of an ambient scribe for clinic note documentation during this visit. Patient Instructions: - Consider Qutenza patches in office treatment pain management, pending insurance approval. - Follow up with your predator control trapper for regular foot care. - Monitor your diabetes closely and maintain regular check-ups. Coding Level of Care Code New Pt Level 4 (17820) Diagnoses Diabetic neuropathy E11.40
--- OUTSIDE RECORDS SUMMARY | 2024-11-06 16:03 | XMS_ITS ---
Author Name [facility] Organization Unknown Care Team Organization Name Specialty Phone Email Start Date End Da te [facility] Kim Sanderson Primary Care 05/25/20222023 [facility] Termed, PROVIDER Primary Care 01/25/202210/18
--- OUTSIDE RECORDS SUMMARY | 2024-11-06 16:03 | XMS_ITS | Clinical Summary ---
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 Name Role Phone Unavailable Primary Care Provider Unavailabl e Social History Tobacco Use Types Packs/Day Years Used Date Smoking Tobacco: Never Assessed Comments Unknown Sex and Gender Information Value Date Recorded Sex Assigned at Not on file Legal Sex Female 11:28 AM EDT Gender Identity Not on file Sexual Orientation Not on file Plan of Treatment Health Maintenance Due Date Last Done Comments CT Colonography 1956 Colonoscopy 1956 Colorectal Cancer Screening 1956 Depression Screening 1956 FIT DNA/Cologuard 1956 FIT 1956 FOBT 1956 SDOH Screening 1956 Sigmoidoscopy 1956 Alcohol/Substance Use Screening 1968 Tobacco Screening 1968 Hepatitis C Screening 1974 DTaP/Tdap/Td Vaccines (1 - Tdap) 06/06/1975 Mammogram 1996 Pneumococcal Vaccine: 50+ Ye ars (1 of 1 - PCV) 2006 Zoster Vaccines (1 of 2) 2006 COVID-19 Vaccine ( - 2023-2 5 season) 2023 Influenza Vaccine (#1) 2024 RSV Patients and Pa tients Aged 60 years or older (1 - 1-dose 75+ series) 06/06/2031 HIB Vaccines Aged Out No longer eligi ble based on patient's age to complete this topic HPV Vaccines Aged Out No longer eligi ble based on patient's age to complete this topic Hepatitis A Vaccines Aged Out No long er eligible based on patient's age to complete this topic Hepatitis B Vaccines Aged Out No long er eligible based on patient's age to complete this topic IPV Vaccines Aged Out No longer eligi ble based on patient's age to complete this topic Meningococcal B Vaccine Aged Out No l onger eligible based on patient's age to complete this topic Meningococcal Vaccine Aged Out No hang leonel eligible based on patient's age to complete this topic RSV under 20 months Aged Out No longe r eligible based on patient's age to complete this topic Rotavirus Vaccines Aged Out No longer eligible based on patient's age to complete this topic Insurance [facility] [employer] (HMO D-SNP)
--- OUTSIDE RECORDS SUMMARY | 2024-11-06 16:03 | XMS_ITS | Clinical Summary ---
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 Take one tab by mount every evening 023 Active busPIRone (BUSPAR) 5 mg tablet Take 1 tablet (5 mg total) by mouth 1 (one) time each day. 023 Active QUEtiapine (SEROquel) 300 mg tablet Take 1 tablet (300 mg total) by mouth at bedtime. 023 Active tobramycin (TOBREX) 0.3 % ophthalmic solution Administer into affected eye(s). Active acetaminophen (TYLENOL) 500 mg tablet Take 1 tablet (500 mg total) by mouth every 6 (six) hours if needed (for pain). 024 Active lidocaine HCL 4 % cream Apply to affected area TID prn for pain 024 Active blood glucose control high,low (FreeStyle Control) solution Use to test sugars TID E11.9 024 Active clotrimazole (LOTRIMIN) 1 % cream Apply to skin and toenails daily for 12 weeks 024 Active lidocaine HCL (LidaFlex) 4 % adhesive patch,medicat ed Apply 1 Applicator topically every 12 hours as needed (pain at night). 023 Active blood-glucose meter kit Use three times daily or as directed for monitoring of diabetes 1 each 024 2024 Active cholecalcifer ol (VITAMIN D-3) 50 mcg (2,000 unit) tablet TAKE 1 TABLET BY MOUTH DAILY. 90 tablet 3 025 Active cyanocobalami n (VITAMIN B-12) 1,000 mcg tablet TAKE 1 TABLET BY MOUTH DAILY 30 tablet 3 025 Active freestyle (FreeStyle Lancets) 28 gauge lancets USE TO TEST BLOOD SUGAR 3 TIMES DAILY. 300 each 1 025 Active FreeStyle Test test strip Check blood sugar three times a day or as directed 300 each 1 025 2025 Active insulin aspart (NovoLOG Flexpen U-100 Insulin) 100 unit/mL (3 mL) injection penIndication s:Type 2 diabetes mellitus without complication, without long-term current use of insulin ([facility] V24, CMS/[facility] V28) INJECT 20 UNITS THREE TIMES A DAY BEFORE MEALS 30 mL 1 025 Active enalapril (VASOTEC) 10 mg tablet Take 1 tablet (10 mg total) by mouth 1 (one) time each day. 90 tablet 1 025 Active pantoprazole (PROTONIX) 40 mg EC tablet TAKE 1 TABLET BY MOUTH DAILY 90 tablet 025 Active metFORMIN XR (GLUCOPHAGE-X R) 500 mg 24 hr tablet TAKE 2 TABLETS BY MOUTH TWICE A DAY WITH MEALS 120 tablet 3 025 Active insulin glargine (Lantus Solostar U-100 Insulin) 100 unit/mL (3 mL) injection pen INJECT 58 UNITS SUBCUTANEOUSLY EVERY NIGHT AT BEDTIME E11.36 15 mL 2 025 Active folic acid (FOLVITE) 1 mg tablet TAKE 1 TABLET BY MOUTH DAILY 30 tablet 1 025 Active atorvastatin (LIPITOR) 40 mg tablet TAKE 1 TABLET BY MOUTH EVERY NIGHT AT BEDTIME 30 tablet 30 025 Active blood sugar diagnostic (FreeStyle Lite Strips) test strip CHECK BLOOD SUGAR THREE TIMES A DAY OR DIRECTED 300 each 1 Active pen needle, diabetic (BD Ultra-Fine Short Pen Needle) 31 gauge x 5/16 needle E11.36 100 each 1 Active atorvastatin (LIPITOR) 40 mg tablet TAKE 1 TABLET BY MOUTH EVERY NIGHT AT BEDTIME 90 tablet 025 2024 Discontinued blood sugar diagnostic (FreeStyle Lite Strips) test strip 100 each by Other route 1 (one) time each day. Use to test blood sugar 3 times daily. 100 each 2 025 2024 Discontinued pen needle, diabetic (BD Ultra-Fine Short Pen Needle) 31 gauge x 5/16 needle E11.36 100 each 1 025 2024 Discontinued(R eorder) diclofenac (VOLTAREN) 1 % topical gel Apply 1 g topically 3 (three) times a day. 90 g 025 2024 Active Problems Problem Noted Date Diagnosed Date Overweight (BMI 25.0-29.9) 12/25/2023 Mild cognitive impairment 07/07/2022 Assessment & Plan (02/02/2024 12:12 PM EST): Patient requires assistance for most of her daily activities. Her son who is also his DIE EQUIPMENT OPERATOR helps her every day. She follows regularly also with behavioral health. Currently on quetiapine, buspirone, Lexapro. Osteoporosis 11/01/2021 Overview (12/25/2023): L hip 10/2021, osteopenia of spine, no previous in chart to compare. Left patella fracture 06/23/2021 Overview (12/25/2023): S/p ORIF. C 12/09/2020 Diabetes mellitus ([facility] V24, [facility] V28) 12/2018 Assessment & Plan (02/02/2024 12:12 PM EST): Fair control of diabetes. Patient will continue with yearly Podiatric and Ophthomologic evaluations.Will continue Angiotensin Converting Enzyme Inhibitor for renal protection. Continue metformin, Lantus, NovoLog. Follows with endo regularly. Encouraged to keep the appointments. We will check a hemoglobin A1c, on this visit. Patient will follow up in 4 months Orders: Comprehensive metabolic panel; Future Hemoglobin A1c; Future Lipid panel with reflex to direct LDL; Future Microalbumin creatinine urine ratio; Future Joint pain 05/15/2018 Cataract 06/08/2017 Overview (12/25/2023): bilaterally GERD (gastroesophageal reflux disease) 8 Overview (12/25/2023): Acute gastitis 08/2016. 2010 gastric biopsy: chronic mildly active gastritis Depression 03/01/2017 Overview (12/25/2023): F/u Lucinda Hyperlipidemia 03/01/2017 Assessment & Plan (02/02/2024 12:12 PM EST): Given the patients cardiac risk profile, the patient requires an LDL cholesterol of less than 70. I have instructed the patient on the principles of a low cholesterol diet and the importance of regular exercise. Continue atorvastatin 40 mg a day. Orders: Comprehensive metabolic panel; Future Hemoglobin A1c; Future Lipid panel with reflex to direct LDL; Future Microalbumin creatinine urine ratio; Future Hypertension 03/01/2017 Assessment & Plan (02/02/2024 12:12 PM EST): The patient's antihypertensive regimen is based on their underlying medical issues. At the time of this visit, the blood pressure is well controlled on Enalapril. The patient is instructed to follow a low sodium diet and to follow up in 4 months. Orders: Comprehensive metabolic panel; Future Hemoglobin A1c; Future Lipid panel with reflex to direct LDL; Future Microalbumin creatinine urine ratio; Future Type 2 diabetes mellitus wit h cataract ([facility] V24, CMS/HCC V28) 03/01/2017 Overview (12/25/2023): uncontrolled Encounters Date Type Department Care Team Description 10/03/2024 1:15 PM EDT Office Visit Orthopedic Surgery - [address] [phone] Alexei Dillon DPM Diabetic mononeuropathy simplex ([facility] V24, [facility] V28) (Primary Dx); Dermatophytosis of nail; Pain in toe of right foot; Pain in toe of left foot 10/01/2024 10:30 AM EDT - 10/01/2024 11:59 PM EDT Hospital Encounter Radiology Department [address] [phone] Encounter for screening mammogram for breast cancer Discharge Disposition: Home or Self Care 08/19/2024 1:00 PM EDT Office Visit Adult Medicine [address] [phone] Kim Sanderson PA Type 2 diabetes mellitus without complication, without long-term current use of insulin ([facility] V24, [facility] V28) (Primary Dx); Primary hypertension; Mixed hyperlipidemia; Hair loss; Skin texture changes; Overweight (BMI 25.0-29.9) 08/19/2024 Telephone Orthopedic Surgery - [address] [phone] Alexei Dillon DPM Med Refill from Last 3 Months Immunizations Name Administration Dates Next Due Influenza Quadravalent, MDCK , 0.5ml, preservative free (Flucelvax) 6mo and older 01/26/2021,01/13/2020,01/30/2019,12/20 Influenza trivalent, 0.5mL ( Fluzone High-dose) 65yo and older 01/06/2023 Influenza trivalent, with pr eservative (Fluzone; Afluria) 6mo and older 12/06/2016 Pneumococcal conjugate 13 va lent (Prevnar 13, PCV13) 2mo and older 11/09/2021 Pneumococcal conjugate 20 va lent (Prevnar 20, PCV 20) 2mo and older 10/19/2023 Pneumococcal polysaccharide 23 valent (Pneumovax 23) 2yo and older 12/15/2015 Tdap Tetanus diptheria acell ular pertussis (Boostrix; Adacel) 7yo and older 12/20/2017 Surgical History Surgery Date Site/Laterality Comments HYSTERECTOMY PROCEDURE: HISTORICAL HYSTERECTOMY; COMMENT: Total hyst approx 2008 KNEE SURGERY 12/09/2020 Left PROCEDURE: HISTORICAL KNEE SURGERY; COMMENT: ORIF left patella s/p left patella fracture BREAST BIOPSY PROCEDURE: BX BREAST; PERC NEEDLE CORE W/IMAG GUID; COMMENT: lt breast stero 07/08-jaimein Medical History Medical History Date Comments Hypertension 03/01/2017 DX:Hypertension Hypercholesteremia 03/01/2017 DX:Hyperchole steremia Depression 03/01/2017 DX:Depression Cataract 06/08/2017 DX:Cataract; COM MENT: bilaterally Type 2 diabetes mellitus wit h cataract ([facility] V24, [facility] V28) 03/01/2017 DX:Type 2 diabetes mellitus with cataract ([facility]) Hyperlipidemia 03/01/2017 DX:Hyperlipidemi a GERD (gastroesophageal reflux disease) 8 DX:GERD (gastroesophageal reflux disease); COMMENT: Acute gastitis 08/2016. 2010 gastric biopsy: chronic mildly active gastritis History of Helicobacter pylori infection 06/09/19 18 DX:History of Helicobacter pylori infection Joint pain 05/15/2018 DX:Joint pain Uncontrolled type 2 diabetes with neuropathy 09/26/2018 DX:Uncontrolled type 2 diabe solo with neuropathy CTS (carpal tunnel syndrome) 01/2019 DX: CTS (carpal tunnel syndrome); COMMENT: right Osteoporosis 11/01/2021 DX:Osteoporosis; COMMENT: L hip 10/2021, osteopenia of spine, no previous in chart to compare. Family History Medical History Relation Name Comments Diabetes Father Alzheimers Diabetes Mother Relation Name Status Comments Father Mother Social History Tobacco Use Types Packs/Day Years Used Date Smoking Tobacco: Never Smokeless Tobacco: Never Tobacco Cessation:Counseling Given: Not Answered Alcohol Use Standard Drinks/Week Comments No 0 (1 standard drink = 0.6 oz pur e alcohol) Housing Instability Answer Date Recorde d Are you worried that in the next 2 months you may not have stable housing? No 02/02/2024 Access to Healthcare Answer Date Record ed Within the last 3 months, ho w many times did you visit the emergency department for your medical care? 0 02/02/2024 Health Literacy Answer Date Recorded How often do you need to hav e someone help you when you read instructions, pamphlets, or other written material from your doctor or pharmacy? Sometimes 02/02/2024 Caregiver: How often do you need to have someone help you when you read instructions, pamphlets, or other written material from your doctor or pharmacy? Not on file 02/02/2024 Financial Risk Answer Date Recorded How hard is it for you to pa y for the very basics like food, housing, medical care, and air conditioning / heating? Hard 02/02/2024 Transportation Answer Date Recorded Has the lack of transportati on kept you from meetings, work, or from getting things needed for daily living? No 02/02/2024 Has the lack of transportati on kept you from medical appointments or from getting medications? Not on file 02/02/2024 Social Isolation Answer Date Recorded How often do you feel lonely or isolated from those around you? Sometimes 02/02/2024 Food Risk Answer Date Recorded Within the past 12 months we worried whether our food would run out before we got money to buy more. Often true 02/02/2024 Within the past 12 months th e food we bought just didn't last and we didn't have money to get more. Often true 02/02/2024 Dependent Care Answer Date Recorded Do you need help finding or paying for care for your loved ones. For example, child care leader or elderly care for an older adult? No 02/02/2024 Education Answer Date Recorded Do you think completing more education or training, like finishing a GED, going to college, or learning a trade, would be helpful for you? No 02/02/2024 Employment and Income Answer Date Recor ded During the last four weeks, have you been actively looking for work? No 02/02/2024 Living Situation Answer Date Recorded What is your living situation? 1 04/03/2023 Comments No Sex and Gender Information Value Date Recorded Sex Assigned at Not on file Legal Sex Female 4:35 AM EST Gender Identity Not on file Sexual Orientation Not on file Obstetrics History Last Filed Vital Signs Vital Sign Reading Time Taken Comments Blood Pressure 92/55 08/19/2024 1:15 PM EDT Pulse 89 08/19/2024 1:15 PM EDT Temperature 36.2 C (97.2 F) 08/19/2024 1:15 PM EDT Respiratory Rate 12 08/19/2024 1:15 PM EDT Oxygen Saturation 97% 08/19/2024 1:15 PM EDT Inhaled Oxygen Concentration - - Weight 71 kg (156 lb 9.6 oz) 08/19/2024 1:15 PM EDT Height 157.5 cm (5' 2 ) 08/19/2024 1:15 PM EDT Body Mass Index 28.64 08/19/2024 1:15 PM EDT Plan of Treatment Upcoming Encounters Date Type Department Care Team (Late st Contact Info) Description 12/18/2024 1:15 PM EDT Office Visit Orthopedic Surgery - [place] [phone] [phone] Alexei Dillon, DPM [address] [address] 12/19/2024 12:30 PM EDT Office Visit Adult Medicine East - [address] [phone] Verito Angiuano MD [address] [place] [address] 02/14/2025 3:40 PM EST Office Visit Endocrinology - [address] [phone] Heide Acosta PA [address] [place] [id number] Health Maintenance Due Date Last Done Comments RSV Immunization Adult Patients (1 - Risk 60-74 years 1-dose series) 2016 Osteoporosis Screening (Bone Density Screening) 10/30/2023 10/29/2021 Depression Screening 03/20/2024 02/02/2024, 01/07/20 23 Diabetes: Annual Retina Eye Exam 08/28/2024 08/29/2023 Influenza Vaccine (#1) 2024 3, 01/26/2021, 01/13/2020, Additional history exists Diabetes: Annual Foot Exam 02/01/2025 02/02/2024 Falls Risk Assessment 02/01/2025 02/02/2024, 023 Medicare Annual Wellness Visit 02/01/2025 02/02/2024 Social Influencers of Health Screening 02/01/2025 02/02/2024 Diabetes: Blood Sugar Control Test (HGBA1C) 02/18/2025 08/19/2024, 11/10/2023, 11/10/2023, Additional history exists Diabetes: Annual GFR (Glomerular Filtration Rate) 08/19/2025 08/19/2024, 11/10/2023, 04/21/2023 Hypertension/CHF/CAD Annual BMP Blood Test 08/19/2025 08/19/2024, 11/10/2023, 04/21/2023 Diabetes: Annual Urine Albumin-Creatinine Ratio (uACR) 10/29/2025 10/29/2024, 11/10/2023 Breast Cancer Screening 10/01/2026 10/02/19, 10/24/2022, 07/16/2021, Additional history exists DTaP,Tdap,and Td Vaccines (2 - Td or Tdap) 12/21/2027 12/20/2017 Colorectal Cancer Screening: Colonoscopy 11/14/2028 11/14/2018, 11/14/2018 Cholesterol Screening (Lipid Panel) 10/29/2029 10/29/2024, 11/10/2023, 11/10/2023 Hepatitis C Screening Completed 02/06/2019 COVID-19 Vaccine Discontinued 08/20/2020, 07/30/2020 Pneumococcal Vaccine: 50+ Years Completed 10/19/2023, 11/09/2021, 12/15/2015 HIB Vaccines Aged Out No longer eligi [...] on patient's age to complete this topic MMR Vaccines Aged Out No longer eligi ble based on patient's age to complete this topic Meningococcal ACWY Vaccine Aged Out N o longer eligible based on patient's age to complete this topic Meningococcal B Vaccine Aged Out No l onger eligible based on patient's age to complete this topic RSV Immunization Patients Under 20 months Aged Out No longer eligible based on patient's age to complete this topic Varicella Vaccines Aged Out No longer eligible based on patient's age to complete this topic Zoster Vaccines Discontinued Procedures Procedure Name Priority Date/Time Associated Diagnosis Comments LIPID PANEL WITH REFLEX TO DIRECT LDL Routine 10/29/2024 8:43 AM EDT Type 2 diabetes mellitus without complication, without long-term current use of insulin ([facility] V24, [facility] V28) Primary hypertension Mixed hyperlipidemia MICROALBUMIN CREATININE URINE RATIO Routine 10/29/2024 8:43 AM EDT Type 2 diabetes mellitus without complication, without long-term current use of insulin ([facility] V24, [facility] V28) Primary hypertension Mixed hyperlipidemia MG MAMMO DIGITAL SCREENING W KIP BILAT Routine 10/01/2024 10:36 AM EDT Encounter for screening mammogram for breast cancer CBC WITH AUTO DIFFERENTIAL Routine 08/19/2024 2:03 PM EDT Hair loss IRON AND TIBC Routine 08/19/2024 2:03 PM EDT Hair loss CBC AND DIFFERENTIAL Routine 08/19/2024 2:03 PM EDT Hair loss THYROID STIMULATING HORMONE WITH REFLEX TO FREE T4 AND FREE T3 Routine 08/19/2024 2:03 PM EDT Hair loss VITAMIN B12 Routine 08/19/2024 2:03 PM EDT Hair loss HEMOGLOBIN A1C Routine 08/19/2024 2:03 PM EDT Type 2 diabetes mellitus without complication, without long-term current use of insulin ([facility] V24, [facility] V28) COMPREHENSIVE METABOLIC PANEL Routine 08/19/2024 2:03 PM EDT Hair loss HM DIABETES EYE EXAM Routine 08/29/2023 HM DEPRESSION SCREENING Routine 01/06/2023 FALLS RISK ASSESSMENT Routine 01/06/2023 DXA BONE DENSITY STUDY 1+ SITS AXIAL SKEL Routine 10/29/2021 11:41 AM EDT Encounter for screening for osteoporosis HEPATITIS C SCREENING Routine 02/06/2019 COLONOSCOPY Routine 11/14/2018 from Last 3 Months or Most Recently Relevant to Health Maintenance Results * (ABNORMAL) Lipid panel with reflex to direct LDL (10/29/2024 8:43 AM EDT) Cholesterol 150 0 - 200 mg/dL LAB CHEMISTRY METHOD 10/29/2024 3:27 PM EDT [facility] Triglycerides 211(H) 0 - 150 mg/dL LAB CHEMISTRY METHOD 10/29/2024 3:27 PM EDT [facility] HDL 44 >=40 mg/dL LAB CHEMISTRY METHOD 10/29/2024 3:27 PM T [facility] LDL Calculated 64 0 - 100 mg/dL LAB CHEMISTRY METHOD 10/29/2024 3:27 PM EDT [facility] Comment:Estimated LDL Calcul ated using equation: Total cholesterol - HDL cholesterol - (Triglycerides/5) VLDL Cholesterol Efrain 42.2 mg/dL LAB CHEMISTRY METHOD 10/29/2024 3:27 PM EDT [facility] Non HDL Chol. (LDL+VLDL) 106 <145 mg/dL LAB CHEMISTRY METHOD 10/29/2024 3:27 PM T [facility] Chol/HDL Ratio 3.4 0.0 - 4.4 LAB CHEMISTRY METHOD 10/29/2024 3:27 PM [facility] Blood Venous blood specimen / Unknown Venipuncture / Unknown 10/29/2024 8:43 AM EDT 10/29/2024 8:43 AM EDT us Verito Anguiano MD LAB BLOOD ORDERABL ES Final Result Performing Organization Address [facility]/ZIP Co de Phone Number [facility] [address] [place] [address], [place] [phone] * Microalbumin creatinine urine ratio (10/29/2024 8:43 AM EDT) Creatinine, Urine 84.0 mg/dL LAB CHEMISTRY METHOD 10/29/2024 12:49 PM EDT [facility] Microalb, Ur 6.7 0.0 - 29.0 mg/L LAB CHEMISTRY METHOD 10/29/2024 12:49 PM EDT [facility] Microalb/Creat Ratio 8 <30 mg/g creat LAB CHEMISTRY METHOD 10/29/2024 12:49 PM EDT [facility] Urine Urine specimen obtained by clean catch procedure / Unknown Non-blood Collection / Unknown 10/29/2024 8:43 AM EDT 10/29/2024 8:43 AM EDT us Verito Anguiano MD LAB URINE ORDERABL ES Final Result Performing Organization Address [facility]/ZIP Co de Phone Number [facility] [address] [place] [address], [place] [phone] * MG Mammo Digital Screening w Kip bilat (10/01/2024 10:36 AM EDT) Anatomical Region Laterality Modality Breast Bilateral Mammography 10/02/2024 4:11 PM EDT Impressions 10/02/2024 4:27 PM EDT 1. No mammographic evidence of malignancy 2. Scattered fibroglandular tissue BI-RADS CATEGORY: 2 - BENIGN RECOMMENDATION: Screening bilateral mammogram is recommended in 1 year. Mammo Location: [facility], [address] [place] [address], [phone], . -------- FINAL REPORT -------- Dictated By: Tab Cisneros Dictated Date: 10/02/2024 16:11 ET Assigned Physician: Tab Cisneros Reviewed and Electronically Signed By: Tab iCsneros Signed Date: 10/02/2024 16:27 ET Workstation ID: [id number] Transcribed By: Self Edit Transcribed Date: 10/02/2024 16:11 ET Narrative 10/02/2024 4:27 PM EDT A BILATERAL DIGITAL 3D SCREENING MAMMOGRAPHY HISTORY: Routine screening. COMPARISON: Multiple priors dating back to 04/30/2020 Technique: Bilateral full field digital mammography (3D) was performed using standard CC and MLO projections CAD was used to evaluate this mammogram. FINDINGS: Right: No suspicious masses, groups of microcalcification or areas of architectural distortion identified. Stable typically benign parenchymal asymmetries. Left: No suspicious masses, groups of microcalcification or areas of architectural distortion identified. Stable typically benign parenchymal asymmetries. Coarse typically benign upper outer posterior depth calcifications. BREAST DENSITY: B - There are scattered areas of fibroglandular density. Procedure Note Tab Cisneros MD - 10/02/2024 A BILATERAL DIGITAL 3D SCREENING MAMMOGRAPHY HISTORY: Routine screening. COMPARISON: Multiple priors dating back to 04/30/2020 Technique: Bilateral full field digital mammography (3D) was performedusing standard CC and MLO projections CAD was used to evaluate this mammogram. FINDINGS: Right: No suspicious masses, groups of microcalcification or areas ofarchitectural distortion identified. Stable typically benign parenchymalasymmetries. Left: No suspicious masses, groups of microcalcification or areas ofarchitectural distortion identified. Stable typically benign parenchymalasymmetries. Coarse typically benign upper outer posterior depthcalcifications. BREAST DENSITY: B - There are scattered areas of fibroglandular density. IMPRESSION: 1. No mammographic evidence of malignancy 2. Scattered fibroglandular tissue BI-RADS CATEGORY: 2 - BENIGN RECOMMENDATION: Screening bilateral mammogram is recommended in 1 year. Mammo Location: [facility], [address] [place] [address], [phone], . -------- FINAL REPORT -------- Dictated By: Tab Cisneros Dictated Date: 10/02/2024 16:11 ET Assigned Physician: Tab Cisneros Reviewed and Electronically Signed By: Tab Cisneros Signed Date: 10/02/2024 16:27 ET Workstation ID: [id number] Transcribed By: Self Edit Transcribed Date: 10/02/2024 16:11 ET Verito Anguiano MD IMG BI PROCEDURES Final Result * Thyroid stimulating hormone with reflex to free t4 and free t3 (08/19/2024 2:03 PM EDT) [facility] TSH 1.25 0.40 - 4.00 mcIU/mL LAB CHEMISTRY METHOD 08/19/2024 6:13 PM EDT [facility] Blood Venous blood specimen / Unknown Venipuncture / Unknown 08/19/2024 2:03 PM EDT 08/19/2024 2:03 PM EDT Kim MEANS LAB BLOOD ORDERABLES Final Resu lt [facility] [address] [place] [address], * (ABNORMAL) CBC auto differential (08/19/2024 2:03 PM EDT) [facility] WBC 11.7(H) 4.8 - 10.8 K/mcL LAB HEMETOLOGY METHOD 08/19/2024 4:53 PM EDT [facility] RBC 4.30 3.80 - 4.80 M/mcL LAB HEMETOLOGY METHOD 08/19/2024 4:53 PM EDT [facility] Hemoglobin 11.5 11.5 - 16.0 g/dL LAB HEMETOLOGY METHOD 08/19/2024 4:53 PM EDT [facility] Hematocrit 36.4 35.0 - 47.0 % LAB HEMETOLOGY METHOD 08/19/2024 4:53 PM EDT [facility] MCV 85.6 79.0 - 98.0 FL LAB HEMETOLOGY METHOD 08/19/2024 4:53 PM EDT [facility] MCH 27.1 27.0 - 32.0 pcg LAB HEMETOLOGY METHOD 08/19[facility]2024 [facility] MCHC 31.6(L) 32.0 - 37.0 g/dL LAB HEMETOLOGY METHOD 08/19/2024 4:53 PM EDT [facility] RDW 15.0 11.0 - 15.0 % LAB HEMETOLOGY METHOD 08/19/2024 4:53 [facility] Platelets 464(H) 130 - 400 K/mcL LAB HEMETOLOGY METHOD 08/19/2024 4:53 [facility] MPV 11.8(H) 7.0 - 11.0 FL LAB HEMETOLOGY METHOD 08/19/2024 4:53 [facility] NRBC 0.0 <1.0 % LAB HEMETOLOGY METHOD 08/19/2024 4:53 [facility] NRBC Absolute 0.00 <0.10 K/mcL LAB HEMETOLOGY METHOD 08/19/2024 4:53 PM [facility] Neutrophils Relative 65.1 % LAB HEMETOLOGY METHOD 08/19/2024 4:53 PM [facility] Lymphocytes Relative 23.9 % LAB HEM[facility]OLOG[facility] Monocytes Relative 8.5 % LAB HEMETOLOGY METHOD 08/19[facility]2024 4:[facility] Eosinophils Relative 1.3 % LAB HEMETOLOGY METHOD 08/19/2024 4:53 PM [facility] Basophils Relative 0.7 % LAB HEMETOLOGY METHOD 08/19/2024 4:53 PM EDT [facility] Immature Granulocytes Relative 0.5 % LAB HEMETOLOGY METHOD 08/19/2024 4:53 PM EDT [facility] Neutrophils Absolute 7.59(H) 1.50 - 7.00 K/mcL LAB HEMETOLOGY METHOD 08/19/2024 4:53 PM EDT [facility] Lymphocytes Absolute 2.78 1.00 - 5.00 K/mcL LAB HEMETOLOGY METHOD 08/19/2024 4:53 PM EDT [facility] Monocytes Absolute 0.99 0.20 - 1.00 K/mcL LAB HEMETOLOGY METHOD 08/19/2024 4:53 PM EDT [facility] Eosinophils Absolute 0.15 0.00 - 0.50 K/mcL LAB HEMETOLOGY METHOD 08/19/2024 4:53 PM EDT [facility] Basophils Absolute 0.08 0.00 - 0.20 K/mcL LAB HEMETOLOGY METHOD 08/19/2024 4:53 PM EDT [facility] Immature Granulocytes Absolute 0.06(H) 0.00 - 0.03 K/mcL LAB HEMETOLOGY METHOD 08/19/2024 4:53 PM EDT [facility] Blood Venous blood specimen / Unknown Venipuncture / Unknown 08/19/2024 2:03 PM EDT 08/19/2024 2:03 PM EDT us Kim MEANS LAB BLOOD ORDERABLES Final Resu lt [facility] [address] [place] [address], * (ABNORMAL) Iron and TIBC (08/19/2024 2:03 PM EDT) [facility] Signature Iron 50 40 - 150 mcg/dL LAB CHEMISTRY METHOD 08/19/2024 5:33 PM EDT [facility] TIBC 438 250 - 450 mcg/dL LAB CHEMISTRY METHOD 08/19/2024 5:33 PM EDT [facility] Iron Saturation 11(L) 15 - 50 % LAB CHEMISTRY METHOD 08/19/2024 5:33 PM EDT [facility] Blood Venous blood specimen / Unknown Venipuncture / Unknown 08/19/2024 2:03 PM EDT 08/19/2024 2:03 PM EDT Kim MEANS LAB BLOOD ORDERABLES Final Resu lt Performing Organization Address City/[facility]/ZIP Co de Phone Number [facility] [address] [place] [address], [place] [phone] * (ABNORMAL) Hemoglobin A1c (08/19/2024 2:03 PM EDT) [facility] Hemoglobin A1C 6.8(H) <6.5 % LAB CHEMISTRY METHOD 08/19/2024 9:21 PM EDT [facility] Mean Bld Glu Estim. 148 mg/dL LAB CHEMISTRY METHOD 08/19/2024 9:21 PM EDT [facility] Blood Venous blood specimen / Unknown Venipuncture / Unknown 08/19/2024 2:03 PM EDT 08/19/2024 2:03 PM EDT Kim MEANS LAB BLOOD ORDERABLES Final Resu lt [facility] [address] [place] [address], [place] [phone] * Vitamin B12 (08/19/2024 2:03 PM EDT) Pathologist [facility] Vitamin B-12 558 250 - 900 pcg/mL LAB CHEMISTRY METHOD 08/19/2024 5:54 PM EDT [facility] Blood Venous blood specimen / Unknown Venipuncture / Unknown 08/19/2024 2:03 PM EDT 08/19/2024 2:03 PM EDT us Kim MEANS LAB BLOOD ORDERABLES Final Resu lt [facility] [address] [place] [address], [place] [phone] * (ABNORMAL) Comprehensive metabolic panel (08/19/2024 2:03 PM EDT) [facility] Sodium 140 133 - 145 mmol/L LAB CHEMISTRY METHOD 08/19/2024 5:33 PM EDT [facility] Potassium 4.5 3.5 - 5.5 mmol/L LAB CHEMISTRY METHOD 08/19/2024 5:33 PM [facility] Chloride 105 96 - 110 mmol/L LAB CHEMISTRY METHOD 08/19/2024 5:33 PM EDT [facility] CO2 27 21 - 32 mmol/L LAB CHEMISTRY METHOD 08/19/2024 5:33 PM [facility] Anion Gap 8 3 - 11 LAB CHEMISTRY METHOD 08/19/2024 5:33 PM [facility] Glucose 106(H) 70 - 100 mg/dL LAB CHEMISTRY METHOD 08/19/2024 5:33 PM [facility] BUN 16 5 - 25 mg/dL LAB CHEMISTRY METHOD 08/19/2024 5:33 PM T [facility] Creatinine 0.77 0.50 - 1.10 mg/dL LAB CHEMISTRY METHOD 08/19[facility]2024 5:[facility] eGFR 84 >=60 mL/min/1. 73m2 LAB CHEMISTRY METHOD 08/19/2024 5:33 PM T [facility] Comment:Calculation based on the Chronic Kidney Disease Epidemiology Collaboration (CKD-EPI) equation refit without adjustment for race. BUN/Creatinine Ratio 20.8 LAB CHEMISTRY METHOD 08/19/2024 5:33 PM EDT [facility] Calcium 9.4 8.5 - 10.5 mg/dL LAB CHEMISTRY METHOD 08/19/2024 5:33 PM EDT [facility] AST (SGOT) 33 10 - 42 unit/L LAB CHEMISTRY METHOD 08/19/2024 5:33 PM [facility] ALT (SGPT) 45 10 - 60 unit/L LAB CHEMISTRY METHOD 08/19/2024 5:33 PM EDT [facility] Alkaline Phosphatase 118 42 - 121 unit/L LAB CHEMISTRY METHOD 08/19/2024 5:33 PM EDT [facility] Total Protein 7.9 6.0 - 8.0 g/dL LAB CHEMISTRY METHOD 08/19/2024 5:33 PM [facility] Albumin 3.5 3.2 - 5.0 g/dL LAB CHEMISTRY METHOD 08/19/2024 5:33 PM [facility] Total Bilirubin 0.3 0.0 - 1.4 mg/dL LAB CHEMISTRY METHOD 08/19/2024 5:33 PM [facility] Blood Venous blood specimen / Unknown Venipuncture / Unknown 08/19/2024 2:03 PM EDT 08/19/2024 2:03 PM EDT Kim MEANS LAB BLOOD ORDERABLES Final Resu lt [facility] [address] [place] [address], * Diabetes Eye Exam (08/29/2023) Pathologist [facility] Diabetes: Annual Retina Eye Exam abstracted Historical Provider HEALTH MAINTENANCE Final Result * Falls Risk Assessment (01/06/2023) Pathologist [facility] Falls Risk Assessment abstracted Historical Provider HEALTH MAINTENANCE Final Result * Depression Screening (01/06/2023) Depression Screening abstracted us Historical Provider HEALTH MAINTENANCE Final Result * DXA BONE DENSITY STUDY 1+ SITS AXIAL SKEL (10/29/2021 11:41 AM EDT) Anatomical Region Laterality Modality Bone Densitometr y 06/21/2021 3:12 PM EDT Narrative 10/29/2021 5:15 PM EDT BONE DENSITY SCAN (DEXA): FINDINGS: Lumbar Spine T-score is -1.6. (SD relative to 20-29 y/o adult) Z-score is 0.2. (SD relative to age matched peers) This is considered osteopenia by WHO criteria. Left Hip T-score is -2.6. Z-score is -1.1. This is considered osteoporosis by WHO criteria. Comparison exam(s): None. IMPRESSION: IMPRESSION: Osteoporosis by WHO criteria. The [facility] Department of Internal Medicine recommends using National Osteoporosis Foundation (NOF) guidelines in treatment decisions related to osteoporosis. NOF guidelines suggest considering treatment for postmenopausal women and men aged 50 or older presenting with the following: History of hip or vertebral fracture. T-score = -2.5 (DXA) at the femoral neck, total hip, or spine, after appropriate evaluation to exclude secondary causes. Low bone mass (T-score between -1.0 and -2.5 at the femoral neck or spine) AND a 10-year probability of a hip fracture = 3% OR a 10-year probability of a major osteoporosis-related fracture = 20% based on the [place]-adapted WHO algorithm Please note that all treatment decisions require clinical judgment and consideration of individual patient factors, including patient preferences, co-morbidities, previous drug use, risk factors not captured in the FRAX model (e.g., frailty, falls, vitamin D deficiency, increased bone turnover, interval significant decline in bone density) and possible under- or over-estimation of fracture risk by FRAX. Optional alternative screening schedule based on stephanie Puga., [facility] April 07, 2011 for patients with osteopenia (based on hip BMD T-score) is as follows: * advanced osteopenia (T scores -2.00 to -2.49), BMD testing every year * moderate osteopenia (T scores -1.50 to -1.99), BMD testing every 5 years mild osteopenia or normal BMD (T scores -1.50 and higher), BMD testing every 15 years Procedure Note May Acharya MD - 03/08/2022 BONE DENSITY SCAN (DEXA): FINDINGS: Lumbar Spine T-score is -1.6. (SD relative to 20-29 y/o adult) Z-score is 0.2. (SD relative to age matched peers) This is considered osteopenia by WHO criteria. Left Hip T-score is -2.6. Z-score is -1.1. This is considered osteoporosis by WHO criteria. Comparison exam(s): None. IMPRESSION: IMPRESSION: Osteoporosis by WHO criteria. The [facility] Department of Internal Medicine recommendsusing National Osteoporosis Foundation (NOF) guidelines in treatment decisions related toosteoporosis. NOF guidelines suggest considering treatment for postmenopausal women and menaged 50 or older presenting with the following: History of hip or vertebral fracture. T-score = -2.5 (DXA) at the femoral neck, total hip, or spine, afterappropriate evaluation to exclude secondary causes. Low bone mass (T-score between -1.0 and -2.5 at the femoral neck or spine)AND a 10-year probability of a hip fracture = 3% OR a 10-year probability of a majorosteoporosis-related fracture = 20% based on the [place]-adapted WHO algorithm Please note that all treatment decisions require clinical judgment andconsideration of individual patient factors, including patient preferences, co- morbidities,previous drug use, risk factors not captured in the FRAX model (e.g., frailty, falls, vitaminD deficiency, increased bone turnover, interval significant decline in bone density) andpossible under- or over-estimation of fracture risk by FRAX. Optional alternative screening schedule based on stephanie Puga., NEJMJanuary 2011 for patients with osteopenia (based on hip BMD T-score) is as follows: * advanced osteopenia (T scores -2.00 to -2.49), BMD testing every year * moderate osteopenia (T scores -1.50 to -1.99), BMD testing every 5years mild osteopenia or normal BMD (T scores -1.50 and higher), BMD testingevery 15 years Tory MEANS IMG DXA PROCEDURES Final Result * Hepatitis C Screening (02/06/2019) Pathologist [facility] Hepatitis C Screening abstracted Historical Provider HEALTH MAINTENANCE Final Result * Colonoscopy (11/14/2018) Pathologist [facility] Colonoscopy abstracted Anatomical Region Laterality Modality Other Historical Provider HEALTH MAINTENANCE Final Result from Last 3 Months or Most Recently Relevant to Health Maintenance Insurance [employer] MED[employer] Member Subscriber Plan / Payer (Ef fective 2023-Present) Name:Tonya Medina Relation to Subscriber:Self Name:Tonya Medina Payer ID:[id number] Group ID:[id number] Type:Not on file Address: [place] [address] [place] [phone] Advance Directives Documents on File Type Date Recorded 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
== END 2024-11-06 15:58 | disposition home or self-care (01) ==
PROVIDERS: PCP Nurse Practitioner Family; Visit Provider Registered Nurse Emergency
DX: E11.40 Type 2 diabetes mellitus with diabetic neuropathy, unspecified (principal)
CPT/HCPCS: 99204

== ENCOUNTER → 2024-11-06 15:09 | Outpatient (BNVA) | payer OTHER, SELFPAY | PROVIDERS: PCP Nurse Practitioner Family; Visit Provider Registered Nurse Emergency | DX: E11.40 Type 2 diabetes mellitus with diabetic neuropathy, unspecified (principal) | CPT/HCPCS: 99202 ==

== ENCOUNTER 2025-02-01 11:53 | Outpatient (AMB) | payer OTHER, SELFPAY ==
[2025-02-01 11:54] VITALS: BP 128/72; PULSE 108; RESP 17; TEMP 36.8; O2SAT 96; BMI 28.3
--- NOTE | 2025-02-01 11:54 | AM.OFFWIN_ITS ---
Intake Vital Signs 3 02/01/25 11:54 Height 5 ft 2 in Weight 155 lb BMI 28.3 BP 128/72 Blood Pressure Location Lt brachial Position Sitting Respiration 17 Pulse 108 H Pulse Source Pulse Oximeter Temp 98.2 F Temp Source Oral Pulse Oximetry (%) 96 Oxygen Delivery Method Room Air Intake Visit Reasons: EP fell and hit face on cement Intake Note: Pt is here today took a fall today face first on the cement Patient Tobacco Use Status: Never used Tobacco Allergies acetaminophen (From Percocet) Allergy (Intermediate, Verified 02/01/25 11:55) Itching oxycodone (From Percocet) Allergy (Intermediate, Verified 02/01/25 11:55) Itching HPI HPI Comments 2 History of Present Illness0 Details Chief Complaint The patient presents with complaints of a fall. History The patient is a 69-year-old female presenting for evaluation after a fall. Fall with facial injury: - The patient tripped and fell in her ya rd between 9:30 and 10:00 AM today, landing on her face. - She did not lose consciousness and was able to get up with assistance. - The patient subsequently experienced a headache, facial pain, and bleeding. - She took Tylenol for the headache, whi ch provided relief. Past Medical History - The patient's primary care physician i s Dr. Mindi Whittington at [facility]. Review of Systems - HEENT: Reports a headache, which impro seth with Tylenol. Reports facial pain. Denies nausea. - Respiratory: Reports breathing heavily . - Musculoskeletal: Denies injury to hand s or wrists. - Neurological: Denies loss of conscious ness. Physical Exam Awake alert, accompanied by son NIC, EOMI Dried blood inside L nares; facial tenderness without crepitus noted to bilat cheeks, nose and periorbital areas The left upper lip has a lac that is amenable to suturing; tongue wnl Managing secretions Speaking in full sentences Neck FROM Neuro exam WNL Results Medical Decision Making The patient is a 69-year-old female who presented for evaluation following a fall that resulted in facial trauma. Physical examination revealed a significant lip laceration requiring sutures and findings concerning for a possible nasal fracture. This urgent care facility does not have the capability to perform lip suturing. Although a nasal X-ray could be done on-site, a referral to the emergency room is the most appropriate course of action to ensure comprehensive and consolidated care. The ER can manage the wound repair and perform all necessary imaging of the head and face to rule out fractures, avoiding fragmented care. A note regarding the visit and recommendation will be forwarded to her primary care physician. Plan 1. Lip Laceration - The patient sustained a significant li p laceration from the fall that requires suturing. - As this facility cannot provide suturi ng for this type of wound, the patient was advised to go to the emergency room for wound repair. 2. Fall With Possible Nasal Fracture - There is suspicion of a nasal fracture due to the mechanism of injury. - It was recommended that the patient pr oceed to the emergency room to have all necessary imaging, including X-rays of the head and face, and treatment performed in one location. 3. Follow-Up - A note will be sent to the patient's [facility] physician, Dr. Mindi Whittington, to inform her of the visit and the recommendations made. Patient Instructions - Please go to the emergency room for fu rther treatment. - The cut on your lip needs stitches, wh ich they can do at the hospital. - The hospital will also be able to take x-rays of your face and head to make sure no bones are broken. - A note about your visit today will be sent to your primary doctor, Dr. Mindi Whittington. Consent Consent was obtained to take a picture of the patient's face for the medical chart. Patient was informed and verbally consented to the use of an ambient scribe for clinic note documentation during this visit. [facility] Medical History Depression Diabetes GERD (gastroesophageal reflux disease) HTN (hypertension) Hyperlipidemia Surgical History History of carpal tunnel release (~05/2019) History of open reduction and internal fixation (ORIF) procedure Hx of colonoscopy (~2019) Hx of tubal ligation Family History Father Diabetes Alzheimer disease Mother Kidney problem Social History (System 01/13/23 @ 15:28 by Tracy Saba) Alcohol intake: never Patient Tobacco Use Status: Never used Tobacco Second Hand Smoke Exposure: No service: No Current occupational status: disabled Current occupation: rt handed Physical Exam Vital Signs: Last Vital Signs Temp 98.2 F 02/01/25 11:54 Pulse 108 H 02/01/25 11:54 Resp 17 02/01/25 11:54 BP 128/72 02/01/25 11:54 Pulse Ox 96 02/01/25 11:54 Oxygen Delivery Method Room Air 02/01/25 11:54 BMI result Body Mass Index 28.3 Assessment & Plan Assessment & Plan (1) Fall: Code(s): W19.XXXA - Unspecified fall, initial encounter Qualifiers: Encounter type: initial encounter Qualified Code(s): W19.XXXA - Unspecified fall, initial encounter (2) Lip laceration: Code(s): S01.511A - Laceration without foreign body of lip, initial encounter Qualifiers: Encounter type: initial encounter Qualified Code(s): S01.511A - Laceration without foreign body of lip, initial encounter (3) Facial trauma: Code(s): S09.93XA - Unspecified injury of face, initial encounter Qualifiers: Encounter type: initial encounter Qualified Code(s): S09.93XA - Unspecified injury of face, initial encounter Plan . Coding Level of Care Code Est Pt Level 3 (14730) Diagnoses Fall, initial encounter W19.XXXA Encounter type: initial encounter Lip laceration, initial encounter S01.511A Encounter type: initial encounter Facial injury, initial encounter S09.93XA Encounter type: initial encounter
== END 2025-02-01 12:15 | disposition home or self-care (01) ==
PROVIDERS: PCP Nurse Practitioner Family; Visit Provider Nurse Practitioner Family
DX: S01.511A Laceration without foreign body of lip, initial encounter (principal); W19.XXXA Unspecified fall, initial encounter; S09.93XA Unspecified injury of face, initial encounter

== ENCOUNTER 2025-02-01 13:25 | Emergency (ER) | payer OTHER, SELFPAY ==
--- NOTE | ~2025-02-01 | CT_ITS ---
CLINICAL HISTORY: nasal swelling, lip lac s p fall CT maxillofacial without contrast Comparison: None provided Findings: Comminuted bilateral nasal bone fracture. Minimal displacement of fragments. Temporomandibular joints are intact. Paranasal sinuses and mastoid air cells clear. Unremarkable orbital contents. Visualized intracranial contents are within normal limits. Generalized nasal soft tissue swelling. IMPRESSION: Comminuted nasal fractures with associated soft tissue swelling. This document has been electronically signed by: Yves West MD on 02/01/2025 15:48:40
--- NOTE | ~2025-02-01 | CT_ITS ---
CLINICAL HISTORY: trauma CT head without contrast Comparison: CT/SR - CT FACIAL BONES WO IV CON - 02/01/25 14:26 EST Findings: No intra-axial mass, midline shift, hydrocephalus, or acute hemorrhage. No significant atrophy-like change or white matter disease. The visualized paranasal sinuses and mastoid air cells are normal. The orbits are within normal limits. No skull fracture. 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 IMPRESSION: 1. Comminuted nasal bone fractures with associated soft tissue swelling. 2. No acute intracranial findings. This document has been electronically signed by: Yves West MD on 02/01/2025 15:51:01
--- NOTE | ~2025-02-01 | CT_ITS ---
CLINICAL HISTORY: trauma CT cervical spine without contrast Comparison: None provided Findings: Slight lower cervical convex left curvature. Straightening of cervical lordosis. Mild facet disease, more evident on the right. [id number]-[id number] multilevel foraminal stenosis, most significant at the right C5-C6 level. No acute fractures or dislocations. No acute findings on limited view of the intracranial contents. The thyroid is mildly heterogeneous. No nodules meeting criteria for follow-up. No consolidation or effusion at the lung apices. IMPRESSION: Degenerative changes. No acute fracture. This document has been electronically signed by: Yves West MD on 02/01/2025 15:49:25
[2025-02-01 13:28] VITALS: BP 122/57; PULSE 90; RESP 18; TEMP 36.1; O2SAT 96; BMI 27.8
--- NOTE | 2025-02-01 13:35 | ED.FALL ---
HPI - Fall General Chief Complaint: Fall Stated Complaint: Injury Time Seen by Provider: 02/01/25 14:34 Source: patient, family (son) and senior patrol agent (georgian - CAMILOYCE) Limitations: language barrier (georgian ) History of Present Illness ED Provider: CANDACE PAYTON PA-C HPI Narrative: 69 year old female with pmhx significant for T2DM, GERD, HTN presents to the ED today for evaluation of s/p fall this morning. Patient states she was walking around her backyard this morning when she tripped, falling forward hitting her face on the ground. Denies LOC. She is not on a blood thinner. She was able to stand and ambulate back into her house where she contacted her son. Admits her nose began to bleed which stopped shortly without intervention. She endorses a mild headache at present. Denies any symptoms preceeding the fall. Denies dizziness, vision changes, chest pain, palpitations, neck or back pain, numbness/tingling/weakness of the extremities. Related Data Home Medications ?Medication ?Instructions ?Recorded ?Confirmed atorvastatin 40 mg tablet 40 mg PO DAILY 09/29/20 07/22/22 enalapril maleate 10 mg tablet 10 mg PO DAILY 09/29/20 07/22/22 insulin aspart U-100 100 unit/mL 16 unit subcut TID 09/29/20 07/22/22 subcutaneous solution (Novolog U-100 Insulin aspart) insulin glargine 100 unit/mL (3 56 unit subcut DAILY 09/29/20 07/22/22 mL) subcutaneous pen (Lantus Solostar U-100 Insulin) escitalopram oxalate 20 mg tablet 20 mg PO BEDTIME 10/27/20 07/22/22 quetiapine 400 mg tablet 400 mg PO BEDTIME 10/27/20 07/22/22 buspirone 10 mg tablet 1 tab PO BID 12/09/20 07/22/22 metformin 1,000 mg tablet 1 tab PO BID 12/09/20 07/22/22 lancets (Accu-Chek Softclix #100 ea 09/09/21 Lancets) pen needle, diabetic 31 gauge x #1,200 ea 09/09/21 5/16 (Sure Comfort Pen Needle) Previous Rx's ?Medication ?Instructions ?Recorded pantoprazole 40 mg tablet,delayed 40 mg PO DAILY 30 days #30 tabs 02/22/22 release (Protonix) ibuprofen 800 mg tablet (IBU) 800 mg PO Q8H PRN pain #90 tabs 08/01/22 amoxicillin 875 mg-potassium 1 tab PO Q12H 7 days #14 tabs 02/01/25 clavulanate 125 mg tablet Allergies Allergy/AdvReac Type Severity Reaction Status Date / Time acetaminophen (From Percocet) Allergy Intermediate Itching Verified 02/01/25 13:37 oxycodone (From Percocet) Allergy Intermediate Itching Verified 02/01/25 13:37 Review of Systems Review of Systems: Yes all other systems are reviewed and are negative PMFSH Past Medical History Attestation statement: The following information was validated with the patient. Source: old records reviewed and nursing notes reviewed Medical History GERD (gastroesophageal reflux disease) HTN (hypertension) Hyperlipidemia Diabetes Depression Surgical History History of open reduction and internal fixation (ORIF) procedure Hx of colonoscopy (~2019) History of carpal tunnel release (~05/2019) Hx of tubal ligation Family History Family History Father Diabetes Alzheimer disease Mother Kidney problem Social History Social History Alcohol intake: never Patient Tobacco Use Status: Never used Tobacco Second Hand Smoke Exposure: No Advance Directives: No Advance Directives Information Provided: Yes service: No Current occupational status: disabled Current occupation: rt handed Physical Exam Vital Signs: Vital Signs: Last Vital Signs Temp 97 F 02/01/25 13:28 Pulse 90 02/01/25 13:28 Resp 18 02/01/25 13:28 BP 122/57 L 02/01/25 13:28 Pulse Ox 96 02/01/25 13:28 O2 Del Method Room Air 02/01/25 13:28 BMI result Body Mass Index 27.8 vital signs stable General: Well appearing, in no acute distress. Skin: Warm, dry, intact. No rashes or lesions. Head: Normocephalic, atraumatic. no palpable skull fracture or hematoma. EENT: Hearing is intact b/l. Conjunctiva clear. PERRLA. EOM intact. Moist mucous membranes. +Significant swelling noted to nose extending under bilateral eyes. small abrasion to nasal bridge, no active bleeding. there is ecchymosis noted to bilateral medial canthus. no other bruising. no septal hematoma. there is dried blood noted to left nare, no clot. no active bleed. no palpable crepitus to bilateral maxillary or frontal sinuses. there is a 0.5 cm laceration noted to inner upper lip, no active bleeding. dentition intact. Neck: No midline C-spine tenderness, no step off, FROM intact. Cardiac: Chest wall symmetric. RRR Lungs: Normal respiratory effort without accessory muscle use. CTA bilaterally Abdomen: Soft, non-tender, non-distended. No rebound tenderness or guarding. Positive BS x4. Back: No midline spinous or paraspinal tenderness. No step off deformity. Ext: Upper and lower extremities atraumatic, without tenderness, deformity, swelling or erythema. Full ROM throughout. Neuro: AOx3. Normal speech.Strength 5/5 intact throughout. No saddle anesthesia. Sensation intact to light touch. NV intact distally. Ambulating with steady gait. Course Course Course Narrative: Trangcarmel Batista ROUND CUTTER OPERATOR 02/01 3121 This is a rapid medical exam. Deferred additional HPI, ROS, PE to primary provider. 69 yo female here with facial pain, lip laceration after trip and fall today. NO LOC. No AC therapy use. Will obtain CT head/cervical spine/head VSS Reevaluation(s) Reevaluation #1: CT C-spine without fracture. CT facial bones showing comminuted nasal fractures with soft tissue swelling. CT head without skull fracture, no intracranial bleed. Discussed all workup results with patient and family at bedside. I obtained verbal consent for laceration repair. Lidocaine injected for local anesthetic. Laceration repair performed, 3 absorbable sutures placed, patient tolerated well - see procedure note. Will place patient on Augmentin for prophylaxis. She has been given motrin/tylenol in ED today. Advised ICE/ nsaids at home. ENT referral provided. Patient has remained stable throughout ED visit today. Discussed worrisome signs and symptoms and when to return to the ED. All questions answered at this time. Patient is agreeable with disposition and stable for discharge. Medications Administered Discontinued Medications Generic Name Dose Route Start Last Admin Trade Name Biju PRN Reason Stop Dose Admin Diphtheria/Tetanus/Acell Pertussis 0.5 ml 02/01/25 15:07 02/01/25 15:12 Diphth,Pertus(Acell),Tet Adult 0.5 Ml Syringe IM 02/01/25 15:08 0.5 ml .ONCE ONE Administration Lidocaine HCl 5 ml 02/01/25 15:27 02/01/25 15:58 Lidocaine Hcl 1 % Mpf 5 Ml Vial INFILTRATI 02/01/25 15:28 5 ml ONCE ONE Administration Procedures Laceration Laceration 1: Site: lip Size (cm): 0.5 Description: irregular Depth: simple, single layer Local Anesthetic: lidocaine 1% Amount of anesthesia used (mL): 5 Pre-repair: wound explored and irrigated extensively Skin layer closed with: other (Polysorb) Size (cm): 4-0 Number of sutures: 3 Technique: simple, interrupted Medical Decision Making Medical Decision Making [facility] Narrative: 69 year old female with pmhx significant for T2DM, GERD, HTN presents to the ED today for evaluation of s/p fall this morning. Vital signs stable, afebrile. She is well-appearing and in no acute distress. on exam, Significant swelling noted to nose extending under bilateral eyes. small abrasion to nasal bridge, no active bleeding. there is ecchymosis noted to bilateral medial canthus. no other bruising. no septal hematoma. there is dried blood noted to left nare, no clot. no active bleed. no palpable crepitus to bilateral maxillary or frontal sinuses. there is a 0.5 cm laceration noted to inner upper lip, no active bleeding. dentition intact. Differential diagnosis includes facial contusion, fracture, ICH, skull fracture, lip laceration/abrasion Plan for imaging, laceration repair, tdap, and disposition. Differential Diagnosis Differential Diagnoses: The differential diagnosis associated with the presentation includes as above. Admission/Observation not indicated. Lab Data [facility] Lab Attestation statement: I reviewed the patient's lab results. as above. Labs: Lab Results 02/01/25 Range/Units 15:52 POC Glucose 132 H (60-115) mg/dL Independent Interpretation I performed an independent interpretation of an: CT Scan Radiology Impression Discussion of test interpretation with radiology: I have reviewed the radiologist's reading. Radiologist Impression: Procedure(s): CT head/brain wo IV con Accession Number(s): [id number] cc: Verito De La Fuente MD; Trang Batista NP~ Report Number: [id number]: Total DLP = 0.00 mGy-cm Reason for Exam: trauma CLINICAL HISTORY: trauma CT head without contrast Comparison: CT/SR - CT FACIAL BONES WO IV CON - 02/01/25 14:26 EST Findings: No intra-axial mass, midline shift, hydrocephalus, or acute hemorrhage. No significant atrophy-like change or white matter disease. The visualized paranasal sinuses and mastoid air cells are normal. The orbits are within normal limits. No skull fracture. 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 IMPRESSION: 1. Comminuted nasal bone fractures with associated soft tissue swelling. 2. No acute intracranial findings. This document has been electronically signed by: Yves West MD on 02/01/2025 15:51:01 Procedure(s): CT facial bones wo IV con Accession Number(s): [id number] cc: Verito De La Fuente MD; Trang Batista HAND SURGEON~ Report Number: [id number]: Total DLP = 0.00 mGy-cm Reason for Exam: nasal swelling, lip lac s/p fall CLINICAL HISTORY: nasal swelling, lip lac s p fall CT maxillofacial without contrast Comparison: None provided Findings: Comminuted bilateral nasal bone fracture. Minimal displacement of fragments. Temporomandibular joints are intact. Paranasal sinuses and mastoid air cells clear. Unremarkable orbital contents. Visualized intracranial contents are within normal limits. Generalized nasal soft tissue swelling. IMPRESSION: Comminuted nasal fractures with associated soft tissue swelling. Procedure(s): CT cervical spine wo IV con Accession Number(s): [id number] cc: Verito De La Fuente MD; Trang Batista NP~ Report Number: [id number]: Total DLP = 1493.00 mGy-cm Reason for Exam: trauma CLINICAL HISTORY: trauma CT cervical spine without contrast Comparison: None provided Findings: Slight lower cervical convex left curvature. Straightening of cervical lordosis. Mild facet disease, more evident on the right. [id number] multilevel foraminal stenosis, most significant at the right C5-C6 level. No acute fractures or dislocations. No acute findings on limited view of the intracranial contents. The thyroid is mildly heterogeneous. No nodules meeting criteria for follow-up. No consolidation or effusion at the lung apices. IMPRESSION: Degenerative changes. No acute fracture. Independent Historian Clinical information obtained from an independent historian. History obtained from or confirmed by: Other (son) External Record Review External record reviewed: Inpatient record Prescription Management I considered prescription management with: Pain Medication Chronic Conditions Patient?s care impacted by: Diabetes and Hypertension Social Determinants Patient?s care significantly limited by Social Determinants of Health including: Other Social Determinant of Health Critical Care Time Critical Care Time Critical Care Time: No Discharge Plan Discharge Clinical Impression: Fracture of nasal bone Patient Disposition: Home, Self-Care Instructions: Nasal Fracture (ED) Additional Instructions: You were evaluated in the ED today following a fall. Your CT scan shows a nasal bone fracture. There is no emergent intervention warranted at this time however you need to follow up with ENT outpatient. I have provided you with a referral. Call them to establish care. They will not call you. You were noted to have a laceration to your upper lip. This was repaired with 3 absorbable sutures. These do not need to be removed. I suspect your face will become quite bruised over the next few days. Apply ice for 20 minutes at a time to help with swelling. I also recommend NSAIDs such as Motrin/ibuprofen to help with swelling and pain. Your tetanus was updated today. I am starting you on antibiotics. Augmentin has been sent to your pharmacy. Take this as prescribed and to completion. On Augmentin, softer bowel movements are to be expected. Call your provider if you move your bowels more than 4 times a day, your bowel movements are almost all liquid, or you get a rash.? Return with any new or worsening symptoms. In the case of an emergency call 911. Prescriptions: New amoxicillin-pot clavulanate 875-125 mg tablet 1 tab PO Q12H 7 Days Qty: 14 0RF No Action pantoprazole [Protonix] 40 mg tablet,delayed release (DR/EC) 40 mg PO DAILY 30 Days Qty: 30 3RF ibuprofen [IBU] 800 mg tablet 800 mg PO Q8H PRN (Reason: pain) Qty: 90 0RF metformin 1,000 mg tablet 1 tab PO BID buspirone 10 mg tablet 1 tab PO BID quetiapine 400 mg tablet 400 mg PO BEDTIME escitalopram oxalate 20 mg tablet 20 mg PO BEDTIME atorvastatin 40 mg tablet 40 mg PO DAILY enalapril maleate 10 mg tablet 10 mg PO DAILY Lantus Solostar U-100 Insulin 100 unit/mL (3 mL) insulin pen 56 unit subcut DAILY insulin aspart U-100 [Novolog U-100 Insulin aspart] 100 unit/mL solution 16 unit subcut TID (DME) pen needle, diabetic [Sure Comfort Pen Needle] 31 gauge x 5/16 needle See Rx Instructions .ROUTE .MEDSUPPLY Qty: 1200 Rx Instructions: As directed (DME) lancets [Accu-Chek Softclix Lancets] [facility] See Rx Instructions Not Applicable BID Qty: 100 Rx Instructions: As directed Referrals: [facility] [Provider Group, Ear, Nose, Throat] Referral Note: Comminuted nasal bone fractures Verito De La Fuente MD [Primary Care Provider, Internal Medicine] Print Language: Bulgarian
[2025-02-01] MEDS: Diphth,Pertus(ACell),Tet Adult 0.5 ML SYRINGE IM (15:12)
[2025-02-01 15:55] LABS: Glucose, Whole Blood 132 mg/dL (60-115)
--- NOTE | 2025-02-01 15:56 | PC.NURSE ---
Called to room by pt family, states pt hasnt eaten since this am and pts blood sugar is getting low . POC performed, =132. Provider made aware
[2025-02-01] MEDS: Lidocaine HCl 1 % MPF 5 ML VIAL INFILTRATI (15:58)
[2025-02-01 16:55] VITALS: BP 122/57; PULSE 90; RESP 18; TEMP 36.1; O2SAT 96
== END 2025-02-01 16:56 | disposition home or self-care (01) ==
PROVIDERS: Emergency Provider Emergency Medicine; PCP Internal Medicine
DX: S02.2XXA Fracture of nasal bones, initial encounter for closed fracture (principal); S01.511A Laceration without foreign body of lip, initial encounter; Z23 Encounter for immunization; E11.9 Type 2 diabetes mellitus without complications; I10 Essential (primary) hypertension; W01.0XXA Fall on same level from slipping, tripping and stumbling without subsequent striking against object, initial encounter; Y93.9 Activity, unspecified; Y92.007 Garden or yard of unspecified non-institutional (private) residence as the place of occurrence of the external cause; Y99.9 Unspecified external cause status; Z88.5 Allergy status to narcotic agent
CPT/HCPCS: 12011; 70450; 70486; 72125; 82947; 90471; 90715; 99212; 99283; 99284; J2003

== ENCOUNTER → 2025-02-01 13:37 | Outpatient (BNV) | payer OTHER, SELFPAY | PROVIDERS: Emergency Provider Emergency Medicine; PCP Internal Medicine; Visit Provider Radiology Diagnostic Radiology | DX: M47.812 Spondylosis without myelopathy or radiculopathy, cervical region (principal); S02.2XXA Fracture of nasal bones, initial encounter for closed fracture; Z04.3 Encounter for examination and observation following other accident | CPT/HCPCS: 70450; 70486; 72125 ==